=== PATIENT | female | born 1980 | race Caucasian/White ===

== ENCOUNTER 2016-06-09 08:00 | Outpatient (CLI) | payer MEDICAID | END 2016-06-09 08:01 | disposition home or self-care (01) | DX: I49.8 Other specified cardiac arrhythmias (principal); F32.9 Major depressive disorder, single episode, unspecified; F17.200 Nicotine dependence, unspecified, uncomplicated; R07.9 Chest pain, unspecified; R00.2 Palpitations; R06.09 Other forms of dyspnea ==

== ENCOUNTER 2017-08-30 08:00 | Outpatient (CLI) | payer MEDICAID ==
[2017-08-30 13:23] LABS: CHOL/HDL RATIO 4.4 (<4.4); CHOLESTEROL 200 mg/dL; HDL CHOLESTEROL 45 mg/dL; LDL CHOLESTEROL,CALCULATED 125 mg/dL; LDL/HDL RATIO 2.8 (<4.4); VLDL CHOLESTEROL 30 mg/dL
[2017-08-30 13:29] LABS: HB2 TOTAL 16.1 g/dL; HEMOGLOBIN A1C 0.48 g/dL; HEMOGLOBIN A1C % 4.9 % (4.6-6.2)
== END 2017-08-30 08:01 | disposition home or self-care (01) ==
LOC: LAB.N 08:00
PROVIDERS: ATTEND Registered Nurse
DX: F33.9 Major depressive disorder, recurrent, unspecified (principal)
CPT/HCPCS: 36415; 80061; 83036; 83721

== ENCOUNTER 2018-01-31 12:00 | Outpatient (CLI) | payer MEDICAID ==
--- NOTE | 2018-01-31 17:00 | XRAY Report ---
Reason: HIP PAIN,LEFT,CHRONIC Procedure Date: 01/31/2018 Accession Number: [id number] / [id number] Procedure: XR - Hip w/Pelvis 2-3V LT CPT Code: FULL RESULT: EXAM: LEFT HIP AND PELVIS RADIOGRAPHY EXAM DATE: 01/31/2018 12:28 PM. HISTORY: HIP PAIN,LEFT,CHRONIC. COMPARISONS: None available. TECHNIQUE: 1 view of the pelvis and 1 view of the hip. FINDINGS: No acute fracture or dislocation. No significant degenerative changes. Femoral head contours are smooth. No abnormal femoral head sclerosis. Soft tissues are unremarkable. IMPRESSION: Normal pelvis and hip radiography. [facility]
== END 2018-01-31 12:01 | disposition home or self-care (01) ==
LOC: DI 12:00
PROVIDERS: ATTEND Physician Assistant Medical
DX: M25.552 Pain in left hip (principal)

== ENCOUNTER 2018-09-16 08:00 | Outpatient (CLI) | payer MEDICAID ==
[2018-09-16 22:54] LABS: CANDIDA GROUP DNA NEGATIVE (NEGATIVE); CANDIDA KRUSEI DNA NEGATIVE (NEGATIVE); TRICHOMONAS VAGINALIS DNA NEGATIVE (NEGATIVE)
== END 2018-09-16 23:59 | disposition home or self-care (01) ==
LOC: LAB.R 08:00
PROVIDERS: ATTEND Nurse Practitioner Obstetrics & Gynecology
DX: N76.0 Acute vaginitis (principal)
CPT/HCPCS: 87661; 87801

== ENCOUNTER 2018-12-10 15:42 | Outpatient (CLI) | payer MEDICAID | END 2018-12-10 15:43 | disposition EMS.NT | LOC: EMS 15:42 | PROVIDERS: ATTEND Surgery | DX: S29.9XXA Unspecified injury of thorax, initial encounter (principal); V53.5XXA Driver of pick-up truck or van injured in collision with car, pick-up truck or van in traffic accident, initial encounter; Y92.413 State road as the place of occurrence of the external cause ==

== ENCOUNTER 2018-12-13 16:12 | Emergency (ER) | payer OTHER, MEDICAID ==
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
--- NOTE | 2018-12-13 18:27 | XRAY Report ---
Reason: r knee pain s/p fall 4 weeks ago Procedure Date: 12/13/2018 Accession Number: [id number] / [id number] Procedure: XR - Knee 4 View RT CPT Code: FULL RESULT: EXAM: RIGHT KNEE RADIOGRAPHY EXAM DATE: 12/13/2018 05:03 PM. CLINICAL HISTORY: Right knee pain after fall 4 weeks ago. COMPARISON: None. TECHNIQUE: 4 views. FINDINGS: Bones: No acute fracture. No suspicious osseous lesion. Joints: No significant joint space narrowing. No dislocation. Other: None. IMPRESSION: No acute osseous abnormality. [facility]
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
[2018-12-13] MEDS ORDERED: MELOXICAM 7.5 MG TABLET PO STA (18:51)
[2018-12-13 19:06] VITALS: BP 119/76
== END 2018-12-13 19:07 | disposition home or self-care (01) ==
LOC: ED 16:12
DX: J90 Pleural effusion, not elsewhere classified (principal); S90.02XA Contusion of left ankle, initial encounter; S20.219A Contusion of unspecified front wall of thorax, initial encounter; S83.91XA Sprain of unspecified site of right knee, initial encounter; V43.52XA Car driver injured in collision with other type car in traffic accident, initial encounter; Y92.410 Unspecified street and highway as the place of occurrence of the external cause; W19.XXXA Unspecified fall, initial encounter; Y93.59 Activity, other involving other sports and athletics played individually
CPT/HCPCS: 71046; 73564; 73610; 99284; A9270

== ENCOUNTER 2019-05-10 08:00 | Outpatient (CLI) | payer MEDICAID ==
[2019-05-10 12:00] LABS: MUDS CUTOFF CONCENTRATIONS CUTOFF CONC BELOW:
[2019-05-10 18:52] LABS: BASOPHILS # (AUTO) 0.1 10^3/uL (0.0-0.1); BASOPHILS % (AUTO) 0.9 %; EOSINOPHILS # (AUTO) 0.3 10^3/uL (0.0-0.7); EOSINOPHILS % (AUTO) 2.4 %; HGB - HEMOGLOBIN 13.5 g/dL (12.0-16.0); LYMPHOCYTES # (AUTO) 3.8 10^3/uL (1.5-3.5); LYMPHOCYTES % (AUTO) 35.7 %; MEAN CORPUSCULAR HEMOGLOBIN 27.7 pg (27.0-31.0); MEAN CORPUSCULAR HGB CONC 32.9 g/dL (32.0-36.0); MEAN CORPUSCULAR VOLUME 84.2 fL (81.0-99.0); MEAN PLATELET VOLUME 9.6 fL (7.9-10.8); MONOCYTES # (AUTO) 0.6 10^3/uL (0.0-1.0); MONOCYTES % (AUTO) 5.8 %; NEUTROPHILS # (AUTO) 5.8 10^3/uL (1.5-6.6); NEUTROPHILS % (AUTO) 54.8 %; PLT - PLATELET COUNT 440 10^3/uL (130-450); RED BLOOD COUNT 4.87 10^6/uL (4.20-5.40); RED CELL DISTRIBUTION WIDTH 15.4 % (12.0-15.0); WHITE BLOOD COUNT 10.7 x10^3/uL (4.8-10.8)
[2019-05-10 19:08] LABS: HCG UR QUAL NEGATIVE
[2019-05-10 19:14] LABS: AMPHETAMINE SCREEN,URINE NEGATIVE (NEGATIVE); BENZODIAZEPINES SCREEN, URINE NEGATIVE (NEGATIVE); COCAINE SCREEN URINE NEGATIVE (NEGATIVE); METHADONE SCREEN, URINE NEGATIVE (NEGATIVE); METHAMPHETAMINES SCREEN, URINE NEGATIVE (NEGATIVE); OPIATE SCREEN, URINE NEGATIVE (NEGATIVE); OXYCODONE SCREEN, URINE NEGATIVE (NEGATIVE); PROPOXYPHENE SCREEN, URINE NEGATIVE (NEGATIVE); TRICYCLIC ANTIDEPRESSANT,URINE NEGATIVE (NEGATIVE)
[2019-05-10 19:20] LABS: ALBUMIN 3.9 g/dL (3.2-5.5); ALBUMIN/GLOBULIN RATIO 1.3 (1.0-2.2); BILIRUBIN,TOTAL 0.4 mg/dL (0.2-1.0); CALCIUM 8.8 mg/dL (8.5-10.3); CREATININE 0.6 mg/dL (0.4-1.0)
== END 2019-05-10 23:59 | disposition home or self-care (01) ==
LOC: LAB.N 08:00
PROVIDERS: ATTEND Nurse Practitioner Psychiatric/Mental Health
DX: Z13.30 Encounter for screening examination for mental health and behavioral disorders, unspecified (principal)
CPT/HCPCS: 36415; 80053; 80306; 81025; 82306; 84443; 85025

== ENCOUNTER 2019-06-19 14:13 | Emergency (ER) | payer MEDICAID ==
[2019-06-19 14:56] LABS: BASOPHILS # (AUTO) 0.2 10^3/uL (0.0-0.1); BASOPHILS % (AUTO) 1.1 %; EOSINOPHILS # (AUTO) 0.4 10^3/uL (0.0-0.7); EOSINOPHILS % (AUTO) 2.6 %; LYMPHOCYTES # (AUTO) 5.7 10^3/uL (1.5-3.5); LYMPHOCYTES % (AUTO) 38.7 %; MEAN CORPUSCULAR HEMOGLOBIN 28.5 pg (27.0-31.0); MEAN CORPUSCULAR HGB CONC 33.5 g/dL (32.0-36.0); MEAN PLATELET VOLUME 9.2 fL (7.9-10.8); MONOCYTES # (AUTO) 0.9 10^3/uL (0.0-1.0); NEUTROPHILS # (AUTO) 7.6 10^3/uL (1.5-6.6); PLT - PLATELET COUNT 399 10^3/uL (130-450); RED BLOOD COUNT 4.92 10^6/uL (4.20-5.40); RED CELL DISTRIBUTION WIDTH 14.8 % (12.0-15.0); WHITE BLOOD COUNT 14.9 x10^3/uL (4.8-10.8)
[2019-06-19 14:58] LABS: ALBUMIN 4.2 g/dL (3.2-5.5); ALBUMIN/GLOBULIN RATIO 1.4 (1.0-2.2); BILIRUBIN,TOTAL 0.4 mg/dL (0.2-1.0); CALCIUM 9.3 mg/dL (8.5-10.3); CREATININE 0.6 mg/dL (0.4-1.0); TOTAL PROTEIN 7.2 g/dL (6.7-8.2)
--- NOTE | 2019-06-19 15:03 | XRAY Report ---
Reason: chest pain Procedure Date: 06/19/2019 Accession Number: [id number] / [id number] Procedure: XR - Chest 2 View X-Ray CPT Code: 24133 Final Report FULL RESULT: EXAM: CHEST RADIOGRAPHY 2 VIEWS EXAM DATE: 06/19/2019. CLINICAL HISTORY: Chest pain. COMPARISON: PA and lateral chest on 12/13/2018. TECHNIQUE: PA and lateral views. FINDINGS: Lungs/Pleura: Normal vasculature. 3 mm calcific density of the right lower chest, probably a calcified granuloma, is unchanged. No acute pulmonary abnormality. No pleural fluid or pneumothorax, small right pleural effusion resolved since the prior examination. Mediastinum: Normal cardiac and mediastinal contours. Bones: Dextroconvex midthoracic scoliosis, 57 degrees and levoconvex thoracolumbar scoliosis, 51 degrees, are unchanged. Old fracture of the right lateral ninth rib. IMPRESSION: No acute abnormality. [facility]
--- NOTE | 2019-06-19 15:25 | ED Physician Documentation ---
PD HPI CHEST PAIN - Stated complaint Stated Complaint: CHEST TIGHTNESS - Chief complaint Chief Complaint: Cardiac - History obtained from History obtained from: Patient - History of Present Illness Timing - onset: How many weeks ago (3) Timing - onset during: Rest Timing - duration: Minutes Timing - details: Abrupt onset, Now resolved, Waxing and waning Quality: Tightness, Sharp Location: Left chest Radiation: Back Improved by: Rest Worsened by: Movement, Position Associated symptoms: No: Shortness of air, Diaphoresis, Nausea, Vomiting, Feeling faint / dizzy, General Weakness, Palpitations, Cough Similar symptoms before: Has not had sx before Recently seen: Not recently seen - Additional information Additional information: Previously well 39-year-old female with a history of scoliosis that has developed a pain in her left chest which is cramping type in nature and tightness. She has these in episodes and it does seem to be related to positioning of her body. She has these more often if she is standing and she is having these more often if she is at work for a long time. She has been laying on the gurney here in the emergency department in a semi-adkins's position without symptoms now. She is struck by this because she is been having symptoms all day today. She now realizes she can get into a position where she is comfortable. Review of Systems Constitutional: denies: Fever Eyes: denies: Decreased vision Ears: denies: Ear pain Nose: denies: Rhinorrhea / runny nose, Congestion Throat: denies: Sore throat Cardiac: reports: Chest pain / pressure. denies: Palpitations, Pedal edema, Calf pain Respiratory: denies: Dyspnea, Cough GI: denies: Nausea, Vomiting : denies: Dysuria PD PAST MEDICAL HISTORY - Past Medical History Past Medical History: Yes Cardiovascular: Murmur Respiratory: None Neuro: None Endocrine/Autoimmune: None GI: None : None HEENT: None Psych: Depression, Anxiety Musculoskeletal: None Derm: None - Past Surgical History Past Surgical History: No - Present Medications Home Medications: Ambulatory Orders Medication Instructions Recorded Confirmed Meloxicam [Mobic] 15 mg PO DAILY PRN #20 tablet 12/13/18 - Allergies Allergies/Adverse Reactions: Allergies Allergy/AdvReac Type Severity Reaction Status Date / Time No Known Drug Allergies Allergy Verified 06/19/19 14:22 - Social History Does the pt smoke?: Yes Smoking Status: Current every day smoker Does the pt drink ETOH?: Yes Does the pt have substance abuse?: No - Immunizations Immunizations are current?: Yes PD ED PE NORMAL - Vitals Vital signs reviewed: Yes (Normal) - General General: Alert and oriented X 3, No acute distress, Well developed/nourished - HEENT HEENT: Atraumatic, PERRL, EOMI - Neck Neck: Supple, no meningeal sign, No bony TTP - Cardiac Cardiac: RRR, Other (2/6 holosystolic murmer at LSB) - Respiratory Respiratory: No respiratory distress, Clear bilaterally, Other (No chest wall tenderness) - Abdomen Abdomen: Soft, Non tender, Non distended, No organomegaly - Back Back: No CVA TTP, No spinal TTP - Derm Derm: Normal color, Warm and dry, No rash - Extremities Extremities: No deformity, No edema - Neuro Neuro: Alert and oriented X 3, fireperson 2-12 intact, No motor deficit, No sensory deficit, Normal speech Eye Opening: Spontaneous Motor: Obeys Commands Verbal: Oriented GCS Score: 15 - Psych Psych: Normal mood, Normal affect Results - Vitals Vitals: Vital Signs - 24 hr 06/19/19 06/19/19 06/19/19 14:15 14:35 15:10 Temperature 36.7 C Heart Rate 66 64 75 Respiratory 16 16 13 Rate Blood Pressure 121/72 129/80 107/69 O2 Saturation 97 99 99 06/19/19 16:15 Temperature Heart Rate 64 Respiratory 16 Rate Blood Pressure 115/69 O2 Saturation 100 Oxygen O2 Source Room air - EKG (time done) 1420 Rate: Rate (enter#) (65) Rhythm: NSR [place]: RAD Compare to prior EKG: Unchanged from prior EKG (SPT 04-17-2016) Computer interpretation: Agree with computer - Labs Labs: Laboratory Tests 06/19/19 06/19/19 06/19/19 14:35 14:35 14:35 WBC 14.9 H RBC 4.92 Hgb 14.0 Hct 41.8 MCV 85.0 MCH 28.5 MCHC 33.5 RDW 14.8 Plt Count 399 MPV 9.2 Neut # (Auto) 7.6 H Lymph # (Auto) 5.7 H [place] # (Auto) 0.9 Eos # (Auto) 0.4 Baso # (Auto) 0.2 H Absolute Nucleated RBC 0.00 Nucleated RBC % 0.0 Sodium 138 Potassium 3.5 Chloride 101 Carbon Dioxide 27 Anion Gap 10.0 BUN 11 Creatinine 0.6 Estimated GFR (MDRD) 112 Glucose 81 Calcium 9.3 Total Bilirubin 0.4 AST 21 ALT 18 Alkaline Phosphatase 120 Troponin I High Sens < 2.3 L Total Protein 7.2 Albumin 4.2 Globulin 3.0 Albumin/Globulin Ratio 1.4 Lipase 34 - Rads (name of study) chest Radiology: Prelim report reviewed (Impression: No acute abnormality.), EMP read indepedently (and a lot of scoliosis), See rad report PD MEDICAL DECISION MAKING - ED course Complexity details: reviewed old records, reviewed results, re-evaluated patient, considered differential, d/w patient ED course: 39-year-old female with intermittent spasmodic pains in her left chest has significant and impressive scoliosis on her chest x-ray. When I am discussing this with the patient and discussing the possibility of referred pain she realizes that her symptoms are more prevalent when she is standing or makes a twist or movement and she has noticed that when she stands up here at the side of the bed tilts her head a certain way she will get her symptoms to come on. I suspect she has referred pain. She is given a dose of dexamethasone and she will follow-up with her primary about potential further treatment. She was concerned about her heart as a cause for these pains and our work-up is reassuring. Departure - Departure Disposition: 01 Home, Self Care Clinical Impression: Radiculopathy, thoracic region Condition: Stable Instructions: ED Cervical Radiculopathy Follow-Up: Jef Bower PA-C [Primary Care Provider] - Discharge Date/Time: 06/19/19 16:05
[2019-06-19] MEDS ORDERED: DEXAMETHASONE 10 MG/ML VIAL PO STA (15:37)
[2019-06-19] MEDS ORDERED: CHERRY SYRUP 10 ML UDC PO ONE (15:37)
[2019-06-19 16:16] VITALS: BP 115/69
== END 2019-06-19 16:05 | disposition home or self-care (01) ==
LOC: ED 14:13
DX: M54.14 Radiculopathy, thoracic region (principal); M41.85 Other forms of scoliosis, thoracolumbar region; R01.1 Cardiac murmur, unspecified; F17.200 Nicotine dependence, unspecified, uncomplicated
CPT/HCPCS: 36415; 71046; 80053; 83690; 84484; 85025; 93005; 99284; A9270

== ENCOUNTER 2020-02-27 10:33 | Outpatient (CLI) | payer MEDICAID ==
--- NOTE | 2020-02-27 12:52 | XRAY Report ---
PROCEDURE: Knee 4 View LT INDICATIONS: KNEE PAIN,LEFT TECHNIQUE: 4 views of the left knee(s) were acquired. COMPARISON: None. FINDINGS: Bones: No fractures or dislocations. No suspicious bony lesions. Mild medial and patellofemoral co mpartment narrowing. No erosions or periarticular osteophytes. Soft tissues: Mild to moderate joint effusion. No suspicious soft tissue calcifications. IMPRESSION: Mild medial and patellofemoral compartment narrowing suggestive early osteoarthritis. Reviewed by: Cesia Sumner MD on 02/27/2020 12:51 PM PST Approved by: Cesia Sumner MD on 02/27/2020 12:51 PM PST Station ID: [id number]
== END 2020-02-27 10:34 | disposition home or self-care (01) ==
LOC: DI 10:33
PROVIDERS: ATTEND Nurse Practitioner Family
DX: M25.562 Pain in left knee (principal)

== ENCOUNTER 2020-05-08 08:00 | Outpatient (CLI) | payer MEDICAID ==
[2020-05-08 18:44] LABS: BASOPHILS # (AUTO) 0.1 10^3/uL (0.0-0.1); BASOPHILS % (AUTO) 0.9 %; EOSINOPHILS # (AUTO) 0.2 10^3/uL (0.0-0.7); HGB - HEMOGLOBIN 13.9 g/dL (12.0-16.0); LYMPHOCYTES # (AUTO) 4.6 10^3/uL (1.5-3.5); LYMPHOCYTES % (AUTO) 40.5 %; MEAN CORPUSCULAR HEMOGLOBIN 27.7 pg (27.0-31.0); MEAN CORPUSCULAR VOLUME 86.8 fL (81.0-99.0); MEAN PLATELET VOLUME 9.6 fL (7.9-10.8); MONOCYTES # (AUTO) 0.7 10^3/uL (0.0-1.0); MONOCYTES % (AUTO) 5.8 %; NEUTROPHILS # (AUTO) 5.7 10^3/uL (1.5-6.6); NEUTROPHILS % (AUTO) 50.4 %; PLT - PLATELET COUNT 424 10^3/uL (130-450); RED BLOOD COUNT 5.01 10^6/uL (4.20-5.40); RED CELL DISTRIBUTION WIDTH 14.6 % (12.0-15.0); WHITE BLOOD COUNT 11.3 x10^3/uL (4.8-10.8)
[2020-05-08 19:34] LABS: HEMOGLOBIN A1c% 5.5 % (4.27-6.07)
[2020-05-08 19:38] LABS: ALBUMIN 4.2 g/dL (3.2-5.5); ALBUMIN/GLOBULIN RATIO 1.4 (1.0-2.2); BILIRUBIN,TOTAL 0.5 mg/dL (0.2-1.0); CALCIUM 9.4 mg/dL (8.5-10.3); CREATININE 0.5 mg/dL (0.4-1.0); TOTAL PROTEIN 7.3 g/dL (6.7-8.2)
== END 2020-05-08 23:59 | disposition home or self-care (01) ==
LOC: LAB.WCP 08:00
PROVIDERS: ATTEND Physician Assistant
DX: E55.9 Vitamin D deficiency, unspecified (principal); F32.9 Major depressive disorder, single episode, unspecified
CPT/HCPCS: 36415; 80053; 83036; 84443; 85025

== ENCOUNTER 2021-08-06 08:33 | Outpatient (CLI) | payer MEDICAID ==
[2021-08-06 12:18] LABS: BASOPHILS # (AUTO) 0.1 10^3/uL (0.0-0.1); EOSINOPHILS # (AUTO) 0.2 10^3/uL (0.0-0.7); EOSINOPHILS % (AUTO) 2.1 %; HCT - HEMATOCRIT 44.7 % (37.0-47.0); LYMPHOCYTES # (AUTO) 3.1 10^3/uL (1.5-3.5); LYMPHOCYTES % (AUTO) 28.7 %; MEAN CORPUSCULAR HEMOGLOBIN 29.6 pg (27.0-31.0); MEAN CORPUSCULAR HGB CONC 33.6 g/dL (32.0-36.0); MEAN CORPUSCULAR VOLUME 88.2 fL (81.0-99.0); MONOCYTES # (AUTO) 0.8 10^3/uL (0.0-1.0); NEUTROPHILS # (AUTO) 6.6 10^3/uL (1.5-6.6); NEUTROPHILS % (AUTO) 60.9 %; PLT - PLATELET COUNT 411 10^3/uL (130-450); RED BLOOD COUNT 5.07 10^6/uL (4.20-5.40); RED CELL DISTRIBUTION WIDTH 15.4 % (12.0-15.0); WHITE BLOOD COUNT 10.9 x10^3/uL (4.8-10.8)
[2021-08-06 12:30] LABS: THYROID STIMULATING HORMONE 1.28 uIU/mL (0.34-5.60)
[2021-08-06 12:42] LABS: ALBUMIN 4.1 g/dL (3.2-5.5); ALBUMIN/GLOBULIN RATIO 1.4 (1.0-2.2); ALKALINE PHOSPHATASE 90 IU/L (42-121); ALT ALANINE AMINOTRANSFERASE 22 IU/L (10-60); AST ASPARTATE AMINOTRANSFERASE 23 IU/L (10-42); BILIRUBIN,TOTAL 0.7 mg/dL (0.2-1.0); BUN - BLOOD UREA NITROGEN 9 mg/dL (6-20); CALCIUM 9.2 mg/dL (8.5-10.3); CARBON DIOXIDE - CO2 26 mmol/L (21-32); CHLORIDE 103 mmol/L (101-111); CHOL/HDL RATIO 2.9 (<4.4); CHOLESTEROL 174 mg/dL; CREATININE 0.7 mg/dL (0.4-1.0); GFR - MDRD 93 (>89); GLUCOSE 94 mg/dL (70-100); HDL CHOLESTEROL 60 mg/dL; LDL CHOLESTEROL,CALCULATED 102 mg/dL; LDL/HDL RATIO 1.7 (<4.4); POTASSIUM 3.5 mmol/L (3.5-5.0); SODIUM 138 mmol/L (135-145); TRIGLYCERIDES 59 mg/dL; VLDL CHOLESTEROL 12 mg/dL
== END 2021-08-06 08:34 | disposition home or self-care (01) ==
LOC: LAB.N 08:33
PROVIDERS: ATTEND Physician Assistant
DX: R53.83 Other fatigue (principal); Z79.899 Other long term (current) drug therapy; Z13.220 Encounter for screening for lipoid disorders
CPT/HCPCS: 36415; 80053; 80061; 83721; 84443; 85025

== ENCOUNTER 2021-09-30 08:44 | Outpatient (CLI) | payer MEDICAID ==
[2021-09-30 23:55] LABS: CHLAMYDIA TRACHOMATIS DNA NEGATIVE (NEGATIVE); NEISSERIA GONORRHOEAE DNA NEGATIVE (NEGATIVE); TRICHOMONAS VAGINALIS DNA NEGATIVE (NEGATIVE)
== END 2021-09-30 08:45 | disposition home or self-care (01) ==
LOC: LAB 08:44
PROVIDERS: ATTEND Obstetrics & Gynecology
DX: Z11.3 Encounter for screening for infections with a predominantly sexual mode of transmission (principal)
CPT/HCPCS: 87491; 87591; 87661

== ENCOUNTER 2021-10-17 20:34 | Outpatient (CLI) | payer MEDICAID | END 2021-10-17 20:35 | disposition critical access hospital (66) | LOC: EMS 20:34 | DX: R46.89 Other symptoms and signs involving appearance and behavior (principal); Z78.1 Physical restraint status | CPT/HCPCS: A0425; A0429; A0999 ==

== ENCOUNTER 2021-10-17 20:53 | Emergency (ER) | payer MEDICAID ==
[2021-10-17 23:40] LABS: BASOPHILS # (AUTO) 0.1 10^3/uL (0.0-0.1); BASOPHILS % (AUTO) 0.4 %; EOSINOPHILS # (AUTO) 0.3 10^3/uL (0.0-0.7); HCT - HEMATOCRIT 46.3 % (37.0-47.0); HGB - HEMOGLOBIN 16.2 g/dL (12.0-16.0); LYMPHOCYTES # (AUTO) 4.2 10^3/uL (1.5-3.5); LYMPHOCYTES % (AUTO) 30.7 %; MEAN CORPUSCULAR VOLUME 88.7 fL (81.0-99.0); MEAN PLATELET VOLUME 9.4 fL (7.9-10.8); MONOCYTES # (AUTO) 0.7 10^3/uL (0.0-1.0); MONOCYTES % (AUTO) 5.3 %; NEUTROPHILS # (AUTO) 8.4 10^3/uL (1.5-6.6); NEUTROPHILS % (AUTO) 61.2 %; PLT - PLATELET COUNT 353 10^3/uL (130-450); RED BLOOD COUNT 5.22 10^6/uL (4.20-5.40); WHITE BLOOD COUNT 13.7 x10^3/uL (4.8-10.8)
[2021-10-18 00:04] LABS: ACETAMINOPHEN < 10 ug/mL (10-30); ALBUMIN 4.1 g/dL (3.2-5.5); ALBUMIN/GLOBULIN RATIO 1.3 (1.0-2.2); ALKALINE PHOSPHATASE 82 IU/L (42-121); ALT ALANINE AMINOTRANSFERASE 35 IU/L (10-60); AST ASPARTATE AMINOTRANSFERASE 45 IU/L (10-42); BILIRUBIN,TOTAL 0.5 mg/dL (0.2-1.0); BUN - BLOOD UREA NITROGEN 7 mg/dL (6-20); CALCIUM 8.7 mg/dL (8.5-10.3); CARBON DIOXIDE - CO2 25 mmol/L (21-32); CHLORIDE 104 mmol/L (101-111); CREATININE 0.5 mg/dL (0.4-1.0); ETOH - ETHANOL 208.7 mg/dL; GFR - MDRD 137 (>89); GLUCOSE 92 mg/dL (70-100); LIPASE 94 U/L (22-51); POTASSIUM 3.1 mmol/L (3.5-5.0); SALICYLATE < 6.0 mg/dL; SODIUM 142 mmol/L (135-145); TOTAL PROTEIN 7.2 g/dL (6.7-8.2)
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
[2021-10-18 06:59] LABS: MUDS CUTOFF CONCENTRATIONS CUTOFF CONC BELOW:
[2021-10-18 07:00] LABS: BILIRUBIN,URINE NEGATIVE (NEGATIVE); CLARITY,URINE CLEAR (CLEAR); GLUCOSE, URINE (UA) NEGATIVE (NEGATIVE); KETONES,URINE (UA) TRACE mg/dL (NEGATIVE); LEUKOCYTE ESTERASE, URINE NEGATIVE (NEGATIVE); NITRITE,URINE NEGATIVE (NEGATIVE); OCCULT BLOOD,URINE NEGATIVE (NEGATIVE); PROTEIN,URINE NEGATIVE (NEGATIVE); UROBILINOGEN,URINE 1 (NORMAL) E.U./dL (NORMAL)
[2021-10-18 07:01] LABS: HCG UR QUAL NEGATIVE
[2021-10-18 07:13] LABS: AMPHETAMINE SCREEN,URINE POSITIVE (NEGATIVE); BARBITURATE SCREEN,UR NEGATIVE (NEGATIVE); BENZODIAZEPINES SCREEN, URINE NEGATIVE (NEGATIVE); COCAINE SCREEN URINE NEGATIVE (NEGATIVE); METHADONE SCREEN, URINE NEGATIVE (NEGATIVE); METHAMPHETAMINES SCREEN, URINE NEGATIVE (NEGATIVE); OPIATE SCREEN, URINE NEGATIVE (NEGATIVE); OXYCODONE SCREEN, URINE NEGATIVE (NEGATIVE); PROPOXYPHENE SCREEN, URINE NEGATIVE (NEGATIVE); THC CANNABINOID SCREEN, URINE POSITIVE (NEGATIVE); TRICYCLIC ANTIDEPRESSANT,URINE NEGATIVE (NEGATIVE)
--- NOTE | 2021-10-18 10:41 | ED Physician Documentation ---
ED Addendum - Addendum Addendum: 10/18/21 10:53 Patient was allowed to sober in the emergency department. Social work was consulted. Patient is awake, alert, appropriate. Denies any suicidal or homicidal ideation. Is not gravely disabled. Does not want to go to detox or rehab. Patient would like to go home at this time. Has resources at home for alcohol abuse. Patient counseled regarding signs and symptoms for which I believe and urgent re-evaluation would be necessary. Patient with good understanding of and agreement to plan and is comfortable going home at this time This document was made in part using voice recognition software. While efforts are made to proofread this document, sound alike and grammatical errors may occur. Departure - Departure Disposition: 01 Home, Self Care Clinical Impression: COVID-19 Alcohol intoxication Qualifiers: Complication of substance-induced condition: uncomplicated Qualified Code(s): F10.920 - Alcohol use, unspecified with intoxication, uncomplicated Condition: Good Instructions: ED Alcohol Intoxication Follow-Up: your,doctor in 1 week [Other] Comments: You are brought into the emergency department by law enforcement and EMS due to concerns of alcohol use and your safety. You have been allowed to sleep through the night and metabolize the alcohol. At this time you are not requiring admission to the hospital for medical reasons or to a psychiatric facility. Please limit your alcohol use. But anytime you feel unsafe, have thoughts of hurting yourself or others please return to the emergency department or call 911. During your assessment we obtained a nasal swab for COVID-19 and it is positive. Please follow quarantine guidelines per CDC recommendations. Contact: [address] [address] Fax: Isolation precautions for COVID Day 0 is your first day of symptoms or a positive viral test. Day 1 is the first full day after your symptoms developed or your test specimen was collected. If you have COVID-19 or have symptoms, isolate for at least 5 days. IF YOU: Tested positive for COVID-19 or have symptoms, regardless of vaccination status Stay home for at least 5 days Stay home for 5 days and isolate from others in your home. Wear a well-fitting mask if you must be around others in your home. Do not travel. Ending isolation if you had symptoms End isolation after 5 full days if you are fever-free for 24 hours (without the use of fever-reducing medication) and your symptoms are improving. Ending isolation if you did NOT have symptoms End isolation after at least 5 full days after your positive test. If you got very sick from COVID-19 or have a weakened immune system You should isolate for at least 10 days. Consult your doctor before ending isolation. Take precautions until day 10 Wear a well-fitting mask Wear a well-fitting mask for 10 full days any time you are around others inside your home or in public. Do not go to places where you are unable to wear a mask. Do not travel Do not travel until a full 10 days after your symptoms started or the date your positive test was taken if you had no symptoms. Avoid being around people who are more likely to get very sick from COVID-19.
[2021-10-18 11:03] VITALS: BP 116/79
== END 2021-10-18 11:07 | disposition home or self-care (01) ==
LOC: ED 20:53
DX: U07.1 COVID-19 (principal); F10.920 Alcohol use, unspecified with intoxication, uncomplicated; F17.200 Nicotine dependence, unspecified, uncomplicated
CPT/HCPCS: 36415; 80053; 80306; 80307; 80320; 80329; 81001; 81003; 81025; 83690; 84443; 85025; 87086; 99281; 99283

== ENCOUNTER 2022-03-25 15:15 | Outpatient (CLI) | payer MEDICAID ==
[2022-03-26 23:13] LABS: CHLAMYDIA TRACHOMATIS DNA NEGATIVE (NEGATIVE); NEISSERIA GONORRHOEAE DNA NEGATIVE (NEGATIVE); TRICHOMONAS VAGINALIS DNA NEGATIVE (NEGATIVE)
== END 2022-03-25 23:59 | disposition home or self-care (01) ==
LOC: LAB.WC 15:15
PROVIDERS: ATTEND Nurse Practitioner
DX: Z11.3 Encounter for screening for infections with a predominantly sexual mode of transmission (principal)
CPT/HCPCS: 87491; 87591; 87661

== ENCOUNTER 2022-05-04 15:48 | Outpatient (CLI) | payer MEDICAID ==
--- NOTE | 2022-05-04 17:18 | XRAY Report ---
PROCEDURE: Chest 2 View X-Ray INDICATIONS: SHORTNESS OF BREATH, XR OF TOBACCO USE TECHNIQUE: 2 views of the chest were acquired. COMPARISON: 06/19/2019 FINDINGS: Surgical changes and devices: None. Lungs and pleura: No pleural effusions or pneumothorax. Lungs are clear. Mediastinum: Mildly tortuous thoracic aorta is again seen unchanged from prior study. Heart size is n ormal. Bones and chest wall: Moderate S-shaped scoliosis of thoracolumbar spine is unchanged. No suspicious bony abnormalities. Soft tissues appear unremarkable. IMPRESSION: No acute cardiopulmonary pathology. No significant changes from previous study. Reviewed by: Shankar Nichole MD on 05/04/2022 5:16 PM PST Approved by: Shankar Nichole MD on 05/04/2022 5:16 PM PST Station ID: [id number]
== END 2022-05-04 15:49 | disposition home or self-care (01) ==
LOC: DI 15:48
PROVIDERS: ATTEND Physician Assistant
DX: R06.02 Shortness of breath (principal); Z87.891 Personal history of nicotine dependence

== ENCOUNTER 2022-06-09 08:13 | Outpatient (CLI) | payer MEDICAID ==
[2022-06-09 11:57] LABS: BASOPHILS # (AUTO) 0.1 10^3/uL (0.0-0.1); BASOPHILS % (AUTO) 1.2 %; EOSINOPHILS # (AUTO) 1.1 10^3/uL (0.0-0.7); EOSINOPHILS % (AUTO) 10.3 %; HGB - HEMOGLOBIN 14.9 g/dL (12.0-16.0); LYMPHOCYTES # (AUTO) 3.4 10^3/uL (1.5-3.5); MEAN CORPUSCULAR HEMOGLOBIN 29.2 pg (27.0-31.0); MEAN CORPUSCULAR HGB CONC 32.4 g/dL (32.0-36.0); MEAN CORPUSCULAR VOLUME 90.2 fL (81.0-99.0); MEAN PLATELET VOLUME 9.8 fL (7.9-10.8); MONOCYTES # (AUTO) 0.7 10^3/uL (0.0-1.0); NEUTROPHILS % (AUTO) 48.3 %; PLT - PLATELET COUNT 391 10^3/uL (130-450); RED CELL DISTRIBUTION WIDTH 13.2 % (12.0-15.0); WHITE BLOOD COUNT 10.3 x10^3/uL (4.8-10.8)
[2022-06-09 11:59] LABS: SLIDE REVIEW? Indicated
[2022-06-09 12:29] LABS: PLATELET ESTIMATE, MANUAL NORMAL (130-450,000) (NORMAL); PLATELET MORPHOLOGY NORMAL APPEARANCE (NORMAL); RBC MORPHOLOGY (MULTIPLE) NORMAL APPEARANCE (NORMAL)
== END 2022-06-09 08:14 | disposition home or self-care (01) ==
LOC: LAB.N 08:13
PROVIDERS: ATTEND Physician Assistant
DX: R53.83 Other fatigue (principal); G89.29 Other chronic pain
CPT/HCPCS: 36415; 85025; 85651

== ENCOUNTER 2022-07-23 17:00 | Outpatient (CLI) | payer MEDICAID ==
[2022-07-23 22:43] LABS: BACTERIAL VAGINOSIS DNA NEGATIVE (NEGATIVE); CANDIDA GLABRATA DNA NEGATIVE (NEGATIVE); CANDIDA GROUP DNA NEGATIVE (NEGATIVE); CANDIDA KRUSEI DNA NEGATIVE (NEGATIVE); TRICHOMONAS VAGINALIS DNA NEGATIVE (NEGATIVE)
[2022-07-24 02:11] LABS: CHLAMYDIA TRACHOMATIS DNA NEGATIVE (NEGATIVE); NEISSERIA GONORRHOEAE DNA NEGATIVE (NEGATIVE)
== END 2022-07-23 17:15 | disposition home or self-care (01) ==
LOC: LAB.N 17:00
PROVIDERS: ATTEND Physician Assistant
DX: N76.0 Acute vaginitis (principal)
CPT/HCPCS: 81514; 87491; 87591; 87661

== ENCOUNTER 2022-09-30 15:30 | Outpatient (CLI) | payer MEDICAID ==
[2022-10-01 19:50] LABS: BACTERIAL VAGINOSIS DNA NEGATIVE (NEGATIVE); CANDIDA GLABRATA DNA NEGATIVE (NEGATIVE); CANDIDA GROUP DNA NEGATIVE (NEGATIVE); CANDIDA KRUSEI DNA NEGATIVE (NEGATIVE); TRICHOMONAS VAGINALIS DNA NEGATIVE (NEGATIVE)
[2022-10-01 20:55] LABS: CHLAMYDIA TRACHOMATIS DNA NEGATIVE (NEGATIVE); NEISSERIA GONORRHOEAE DNA NEGATIVE (NEGATIVE)
[2022-10-02 05:13] LABS: HCV AB Non Reactive (Non Reactive); HIV SCREEN 4TH GENERATION Non Reactive (Non Reactive)
[2022-10-05 08:08] LABS: RPR Non Reactive (Non Reactive)
== END 2022-09-30 15:45 | disposition home or self-care (01) ==
LOC: LAB.N 15:30
PROVIDERS: ATTEND Family Medicine
DX: Z11.3 Encounter for screening for infections with a predominantly sexual mode of transmission (principal)
CPT/HCPCS: 36415; 81514; 86592; 86803; 87389; 87491; 87536; 87591; 87661

== ENCOUNTER 2023-06-11 08:00 | Outpatient (CLI) | payer MEDICAID | END 2023-06-11 23:59 | disposition home or self-care (01) | LOC: LAB.WC 08:00 | PROVIDERS: ATTEND Nurse Practitioner | DX: A60.00 Herpesviral infection of urogenital system, unspecified (principal) | CPT/HCPCS: 87252 ==

== ENCOUNTER 2023-07-15 14:45 | Outpatient (CLI) | payer MEDICAID ==
[2023-07-15] MEDS ORDERED: DIATRIZOATE MEGLU/DIATRIZO SOD 30 ML BOTTLE PO ONE (14:50)
[2023-07-15] MEDS ORDERED: iohexoL-300 100 ML VIAL ONE (14:50)
[2023-07-15] MEDS: iohexoL-300 100 ML VIAL IVP ONE (16:38)
[2023-07-15] MEDS: DIATRIZOATE MEGLU/DIATRIZO SOD 30 ML BOTTLE PO ONE (16:38)
--- NOTE | 2023-07-15 22:57 | CT Report ---
PROCEDURE: Abdomen/Pelvis W INDICATIONS: ABN PAIN CONTRAST: Omni 300 100ml TECHNIQUE: After the administration of intravenous contrast, a CT scan of the abdomen and pelvis was performed. Images were recorded and evaluated at appropriate window settings. Reformats: coronal and sagittal. F or radiation dose reduction, the following was used: automated exposure control, adjustment of mA and /or kV according to patient size. COMPARISON: None. FINDINGS: Image quality: Diagnostic. Lower chest: Unremarkable. Liver: No solid mass. Gallbladder and biliary tree: No radiopaque stones or wall thickening. No biliary dilation. Spleen: No splenomegaly. Pancreas: No pancreatic ductal dilation. Adrenals: No adrenal nodule. Kidneys and ureters: No hydronephrosis. No renal cystic lesion which requires follow up. No solid mas s. Stomach, bowel and peritoneum: No bowel distension. No pathologic free fluid. Lymph nodes: No central or retroperitoneal adenopathy. Vessels: No infrarenal aortic aneurysm. PELVIS Reproductive organs: IUD is in place.. Bladder: No abnormal wall thickening, accounting for underdistention. Pelvic lymph nodes: No pelvic adenopathy by size criteria. Bones: No aggressive osseous abnormality. S-shaped scoliosis. No acute vertebral body compression fra cture. Other: No significant ventral or inguinal hernia. IMPRESSION: No acute abdominopelvic process. Reviewed by: Yanna Granados MD, PhD on 07/15/2023 10:55 PM PDT Approved by: Yanna Granados MD, PhD on 07/15/2023 10:55 PM PDT Station ID: [id number]
== END 2023-07-15 14:46 | disposition home or self-care (01) ==
LOC: DI 14:45
PROVIDERS: ATTEND Nurse Practitioner
DX: R10.9 Unspecified abdominal pain (principal)
CPT/HCPCS: 74177; Q9963; Q9967

== ENCOUNTER 2023-08-21 17:48 | Outpatient (CLI) | payer MEDICAID | END 2023-08-21 23:59 | disposition critical access hospital (66) | LOC: EMS 17:48 | DX: R06.02 Shortness of breath (principal); R06.2 Wheezing | CPT/HCPCS: A0425; A0427; A0999 ==

== ENCOUNTER 2023-08-21 18:09 | Inpatient (IN) | payer MEDICAID ==
--- NOTE | 2023-08-21 18:17 | ED Physician Documentation ---
PD HPI DYSPNEA - Stated complaint Stated Complaint: SOA - History obtained from History obtained from: Patient, EMS - Additional information Additional information: She has a history of COPD and she says she been sick with cold for a few days but earlier today started wheezing and having much more trouble breathing despite using her rescue inhaler at home. She denies fevers. She denies any other health problems. On the way here received 3 DuoNebs and 125 mg of IV Solu-Medrol. PD PAST MEDICAL HISTORY - Past Medical History Cardiovascular: Murmur Respiratory: None, COPD Neuro: None Endocrine/Autoimmune: None GI: None : None HEENT: None Psych: Depression, Anxiety Musculoskeletal: None Derm: None - Past Surgical History Past Surgical History: No - Present Medications Home Medications: Ambulatory Orders Medication Instructions Recorded Confirmed ARIPiprazole [Abilify] 5 mg PO DAILY 08/21/23 08/21/23 Albuterol Sulfate [Proair 90 mcg IH Q4HR PRN 08/21/23 08/21/23 Respiclick] Buprenorphine [Sublocade] 1 ea SUBQ ONCE 08/21/23 08/21/23 Citalopram Hydrobromide 20 mg PO DAILY 08/21/23 08/21/23 [Citalopram HBr] Cyclobenzaprine [Flexeril] 10 mg PO TID PRN 08/21/23 08/21/23 Dextroamphetamine/Amphetamine 25 mg PO DAILY 08/21/23 08/21/23 [Dextroamph-Amphet ER 25 mg Cap] Diclofenac Sodium Dr [Voltaren] 75 mg PO BIDAC PRN 08/21/23 08/21/23 Tiotropium [place] [Spiriva] 1 puffs INH DAILY 08/21/23 08/21/23 - Allergies Allergies/Adverse Reactions: Allergies Allergy/AdvReac Type Severity Reaction Status Date / Time No Known Drug Allergies Allergy Verified 08/21/23 19:24 - Social History Does the pt smoke?: Yes Smoking Status: Current every day smoker Does the pt drink ETOH?: Yes Does the pt have substance abuse?: No - Immunizations Immunizations are current?: Yes PD ED PE NORMAL - Vitals Vital signs reviewed: Yes - General General: Other (She has significantly labored breathing but is speaking in full sentences. She is hypoxemic and diaphoretic.) - Cardiac Cardiac: RRR, No murmur - Respiratory Respiratory: Other (Tachypneic and labored breathing with inspiratory and expiratory wheezes throughout and mildly diminished.) - Abdomen Abdomen: Non tender - Extremities Extremities: No edema, No calf tenderness / cord - Neuro Neuro: Alert and oriented X 3 Results - Vitals Vitals: Vital Signs - 24 hr 08/21/23 08/21/23 08/21/23 18:09 18:21 18:40 Temperature 36.8 C Heart Rate 110 H 107 H 100 Respiratory 24 20 20 Rate Blood Pressure 129/92 H 105/81 H O2 Saturation 89 L 92 If not protocol 5 4.5 : Oxygen Flow, liters/minute 08/21/23 08/21/23 08/21/23 18:51 19:00 19:24 Temperature Heart Rate 111 H 114 H 114 H Respiratory 18 20 15 Rate Blood Pressure 126/82 H 116/84 H O2 Saturation 93 93 94 If not protocol 5 6 : Oxygen Flow, liters/minute 08/21/23 19:30 Temperature Heart Rate 107 H Respiratory 15 Rate Blood Pressure 134/79 H O2 Saturation 96 If not protocol 6 : Oxygen Flow, liters/minute Oxygen O2 Source Oxymizer Oxygen Flow Rate 5 - EKG (time done) 1835 EKG releavant findings:: EKG personally interpreted by author of this note. Relevant findings are: Rate: Rate (enter#) (105) Rhythm: Sinus tachycardia, KELBY [place]: Normal Intervals: Normal [place] QRS: Normal Ischemia: Normal ST segments - Labs Labs: Laboratory Tests 08/21/23 08/21/23 08/21/23 18:20 18:20 18:20 WBC 20.8 H RBC 5.59 H Hgb 16.2 H Hct 50.0 H MCV 89.4 MCH 29.0 MCHC 32.4 RDW 13.4 Plt Count 358 MPV 9.0 Neut # (Auto) Not Reportable Lymph # (Auto) Not Reportable [place] # (Auto) Not Reportable Eos # (Auto) Not Reportable Baso # (Auto) Not Reportable Absolute Nucleated RBC Not Reportable Total Counted 100 Band Neuts % (Manual) 0 Reactive Lymphs % (Man) 10 Abnorm Lymph % (Manual) 0 Nucleated RBC % Not Reportable Neutrophils # (Manual) 15.8 H Lymphocytes # (Manual) 3.3 Monocytes # (Manual) 1.2 H Eosinophils # (Manual) 0.4 Basophils # (Manual) 0.0 Differential Comment MANUAL DIFFERENTIAL Platelet Estimate NORMAL (130-450,000) Platelet Morphology NORMAL APPEARANCE RBC Morph Micro Appear NORMAL APPEARANCE VBG pH 7.301 L VBG pCO2 51.1 H VBG pO2 36.2 VBG HCO3 24.6 VBG Total CO2 26.2 VBG O2 Saturation 68.6 VBG Base Excess -2.6 L Sodium 141 Potassium 2.8 L Chloride 101 Carbon Dioxide 26 Anion Gap 14.0 H BUN 8 Creatinine 0.5 L Estimated GFR (MDRD) 136 Glucose 105 H Calcium 9.5 Phosphorus 3.7 Magnesium 1.9 Total Bilirubin 0.3 AST 17 ALT 13 Alkaline Phosphatase 122 H Total Protein 8.2 Albumin 4.5 Globulin 3.7 Albumin/Globulin Ratio 1.2 Nasal Adenovirus (PCR) Nasal B. parapertussis DNA (PCR) Nasal Coronavir 229E PCR Nasal Coronavir HKU1 PCR Nasal Coronavir NL63 PCR Nasal Coronavir OC43 PCR Nasal Enterovir/Rhinovir PCR Nasal Influenza B PCR Nasal Influenza A PCR Nasal Parainfluen 1 PCR Nasal Parainfluen 2 PCR Nasal Parainfluen 3 PCR Nasal Parainfluen 4 PCR Nasal RSV (PCR) Nasal B.pertussis DNA PCR Nasal C.pneumoniae (PCR) Melquiades Human Metapneumo PCR Nasal M.pneumoniae (PCR) Nasal SARS-CoV-2 (PCR) 08/21/23 18:23 WBC RBC Hgb Hct MCV MCH MCHC RDW Plt Count MPV Neut # (Auto) Lymph # (Auto) [place] # (Auto) Eos # (Auto) Baso # (Auto) Absolute Nucleated RBC Total Counted Band Neuts % (Manual) Reactive Lymphs % (Man) Abnorm Lymph % (Manual) Nucleated RBC % Neutrophils # (Manual) Lymphocytes # (Manual) Monocytes # (Manual) Eosinophils # (Manual) Basophils # (Manual) Differential Comment Platelet Estimate Platelet Morphology RBC Morph Micro Appear VBG pH VBG pCO2 VBG pO2 VBG HCO3 VBG Total CO2 VBG O2 Saturation VBG Base Excess Sodium Potassium Chloride Carbon Dioxide Anion Gap BUN Creatinine Estimated GFR (MDRD) Glucose Calcium Phosphorus Magnesium Total Bilirubin AST ALT Alkaline Phosphatase Total Protein Albumin Globulin Albumin/Globulin Ratio Nasal Adenovirus (PCR) NOT DETECTED Nasal B. parapertussis DNA (PCR) NOT DETECTED Nasal Coronavir 229E PCR NOT DETECTED Nasal Coronavir HKU1 PCR NOT DETECTED Nasal Coronavir NL63 PCR NOT DETECTED Nasal Coronavir OC43 PCR NOT DETECTED Nasal Enterovir/Rhinovir PCR DETECTED A Nasal Influenza B PCR NOT DETECTED Nasal Influenza A PCR NOT DETECTED Nasal Parainfluen 1 PCR NOT DETECTED Nasal Parainfluen 2 PCR NOT DETECTED Nasal Parainfluen 3 PCR NOT DETECTED Nasal Parainfluen 4 PCR NOT DETECTED Nasal RSV (PCR) NOT DETECTED Nasal B.pertussis DNA PCR NOT DETECTED Nasal C.pneumoniae (PCR) NOT DETECTED Melquiades Human Metapneumo PCR NOT DETECTED Nasal M.pneumoniae (PCR) NOT DETECTED Nasal SARS-CoV-2 (PCR) NOT DETECTED - Rads (name of study) Single view chest x-ray is clear Relevant Findings:: Final report received, EMP independent interpretation of test PD Medical Decision Making - ED course ED course: 43-year-old woman presents with status asthmaticus with wheezing. Workup in the emergency department she was seen to on initial arrival and she had already received 3 DuoNebs and Solu-Medrol IV en route. She was still in significant respiratory distress and to this I added 5 mg (4 unit doses) of Xopenex, intramuscular epinephrine, and magnesium sulfate. On recheck at 7:24 PM she was still somewhat wheezy but no longer in respiratory distress. She had a 6 L oxygen requirement and decision was made to admit her in telehealth consultation placed at 7:23 PM. - Critical Care Time(min): 40 Time Includes: Direct patient care, Review records, Reassess patient, Document care, Coordinate care, Medical consult, Family consult for tx dec Data interpretation: Labs, Pulse ox, CXR Procedures included in critical care time: Peripheral IV Procedures excluded from critical care time: EKG Departure - Departure Disposition: 66 [facility] DC/Xfer Clinical Impression: COPD with exacerbation Respiratory failure Qualifiers: Chronicity: acute Respiratory failure complication: hypoxia Qualified Code(s): J96.01 - Acute respiratory failure with hypoxia Condition: Serious
[2023-08-21] MEDS: EPINEPHrine 1 MG/ML AMP IM STA (18:27)
[2023-08-21 18:28] LABS: VBG BASE EXCESS -2.6 mmol/L (-2 - +2); VBG HCO3 24.6 mmol/L (23-28); VBG PCO2 51.1 mmHg (41-51); VBG PH 7.301 (7.31-7.41); VBG PO2 36.2 mmHg (25-47); VBG TOTAL CO2 26.2 mmol/L (24-29)
[2023-08-21 18:29] LABS: VBG OXYGEN SATURATION 68.6 % (60-80)
[2023-08-21] MEDS: MAGNESIUM SULFATE 2 GRAM 2 GM/50 ML BAG IV ONE (18:29)
[2023-08-21 18:30] LABS: BASOPHILS % (AUTO) 0.7 %; HGB - HEMOGLOBIN 16.2 g/dL (12.0-16.0); LYMPHOCYTES % (AUTO) 12.5 %; MEAN CORPUSCULAR HGB CONC 32.4 g/dL (32.0-36.0); MEAN CORPUSCULAR VOLUME 89.4 fL (81.0-99.0); MONOCYTES % (AUTO) 7.7 %; NEUTROPHILS % (AUTO) 75.6 %; PLT - PLATELET COUNT 358 10^3/uL (130-450); RED BLOOD COUNT 5.59 10^6/uL (4.20-5.40); RED CELL DISTRIBUTION WIDTH 13.4 % (12.0-15.0); WHITE BLOOD COUNT 20.8 x10^3/uL (4.8-10.8)
[2023-08-21 18:31] LABS: ABNORMAL LYMPHS % (MANUAL) 0 %; BAND NEUTROPHILS % (MANUAL) 0 %
[2023-08-21] MEDS: SODIUM CHLORIDE 0.9% 1,000 ML IV STA (18:33)
[2023-08-21] MEDS: LEVALBUTEROL 1.25 MG/3 ML NEB INH STA (18:38)
[2023-08-21 18:44] LABS: ALBUMIN 4.5 g/dL (3.2-5.5); ALBUMIN/GLOBULIN RATIO 1.2 (1.0-2.2); BILIRUBIN,TOTAL 0.3 mg/dL (0.2-1.0); CALCIUM 9.5 mg/dL (8.5-10.3); CREATININE 0.5 mg/dL (0.6-1.3); MAGNESIUM 1.9 mg/dL (1.7-2.3); PHOSPHORUS 3.7 mg/dL (2.5-5.0); POTASSIUM 2.8 mmol/L (3.5-4.5); TOTAL PROTEIN 8.2 g/dL (6.4-8.9)
[2023-08-21 18:51] LABS: EOSINOPHILS # (MANUAL) 0.4 10^3/uL (0-0.7); LYMPHOCYTES # (MANUAL) 3.3 10^3/uL (1.5-3.5); LYMPHOCYTES % (MANUAL) 6 %; MONOCYTES # (MANUAL) 1.2 10^3/uL (0.0-1.0); NEUTROPHILS # (MANUAL) 15.8 10^3/uL (1.5-6.6); PLATELET ESTIMATE, MANUAL NORMAL (130-450,000) (NORMAL); PLATELET MORPHOLOGY NORMAL APPEARANCE (NORMAL); RBC MORPHOLOGY (MULTIPLE) NORMAL APPEARANCE (NORMAL); REACTIVE LYMPHS % (MANUAL) 10 %
[2023-08-21 18:52] LABS: DIFFERENTIAL COMMENT MANUAL DIFFERENTIAL
--- NOTE | 2023-08-21 19:24 | XRAY Report ---
PROCEDURE: Chest 1V INDICATIONS: cough TECHNIQUE: One view of the chest was acquired. COMPARISON: Chest x-ray, 05/04/2022. FINDINGS: Surgical changes and devices: None. Lungs and pleura: No pleural effusions or pneumothorax. Lungs are clear. Mediastinum: Mediastinal contours appear normal. Heart size is normal. Bones and chest wall: Severe scoliosis. No suspicious bony lesions. Overlying soft tissues appear un remarkable. IMPRESSION: No acute cardiopulmonary process. Reviewed by: Rishi Mitchell MD on 08/21/2023 7:22 PM PDT Approved by: Rishi Mitchell MD on 08/21/2023 7:22 PM PDT Station ID: [id number]
[2023-08-21 19:25] LABS: B. PARAPERTUSSIS- RESP PCR PAN NOT DETECTED; B. PERTUSSIS- RESP PCR PANEL NOT DETECTED; C. PNEUMONIAE- RESP PCR PANEL NOT DETECTED; CORONAVIRUS 229E-RESP PCR NOT DETECTED; CORONAVIRUS HKU1-RESP PCR NOT DETECTED; CORONAVIRUS NL63-RESP PCR NOT DETECTED; CORONAVIRUS OC43-RESP PCR NOT DETECTED; HUMAN METAPNEUMOVIRUS NOT DETECTED; INFLUENZA A- RESP PCR PANEL NOT DETECTED; INFLUENZA B - RESP PCR PANEL NOT DETECTED; M. PNEUMONIAE- RESP PCR PANEL NOT DETECTED; PARAINFLUENZA VIRUS 1 NOT DETECTED; PARAINFLUENZA VIRUS 2 NOT DETECTED; PARAINFLUENZA VIRUS 3 NOT DETECTED; PARAINFLUENZA VIRUS 4 NOT DETECTED; RHINOVIRUS/ENTEROVIRUS DETECTED; RSV- RESP PCR PANEL NOT DETECTED; SARS-CoV-2 -RESP PCR PANEL NOT DETECTED
[2023-08-21] MEDS: cefTRIAXone 1 GM VIAL IVP STA (19:51)
[2023-08-21] MEDS: AZITHROMYCIN INJ 500 MG in SODIUM CHLORIDE 0.9% 250 ML IV STA (20:01)
[2023-08-21] MEDS ORDERED: ONDANSETRON 4 MG/2 ML VIAL IVP PRN (20:03)
[2023-08-21] MEDS: POTASSIUM CHLORIDE 20 MEQ TABLET PO STA (20:39)
--- NOTE | 2023-08-21 20:39 | HISTORY & PHYSICAL EXAMINATION ---
Chief Complaint - Chief Complaint Chief Complaint: SOB History of Present Illness - History of Present Illness HPI Comment/Other: 43 y old female with with PMH Ex tobacco abuse, COPD BIBA due to shortness of breath, wheezing for 1 day. As per pt, she has been having cold like symptoms last few days. Denies fever, chest pain, CARNEY, nausea, vomiting, diarrhea, constipation, symptoms Pt was given solumedrol IV and nebs by EMS On presentation, pt was tachypnic, hypoxic Labs showed WBC 20, Hypokalemia In ER, pt was given solumedrol, nebs, iv abx Pt is admitted due to acute hypoxic resp failure due to COPD exacerbation History - Past Medical History Cardiovascular: reports: Murmur Respiratory: reports: None, COPD Neuro: reports: None Endocrine/Autoimmune: reports: None GI: reports: None : reports: None HEENT: reports: None Psych: reports: Depression, Anxiety Musculoskeletal: reports: None Derm: reports: None MRSA Hx?: Yes - POLST Patient has POLST: No Meds/Allgy - Home Medications Home Medications: Ambulatory Orders Medication Instructions Recorded Confirmed ARIPiprazole [Abilify] 5 mg PO DAILY 08/21/23 08/21/23 Albuterol Sulfate [Proair 90 mcg IH Q4HR PRN 08/21/23 08/21/23 Respiclick] Buprenorphine [Sublocade] 1 ea SUBQ ONCE 08/21/23 08/21/23 Citalopram Hydrobromide 20 mg PO DAILY 08/21/23 08/21/23 [Citalopram HBr] Cyclobenzaprine [Flexeril] 10 mg PO TID PRN 08/21/23 08/21/23 Dextroamphetamine/Amphetamine 25 mg PO DAILY 08/21/23 08/21/23 [Dextroamph-Amphet ER 25 mg Cap] Diclofenac Sodium Dr [Voltaren] 75 mg PO BIDAC PRN 08/21/23 08/21/23 Tiotropium [place] [Spiriva] 1 puffs INH DAILY 08/21/23 08/21/23 - Allergies Allergies/Adverse Reactions: Allergies Allergy/AdvReac Type Severity Reaction Status Date / Time No Known Drug Allergies Allergy Verified 08/21/23 19:24 Review of Systems - Other Findings Other Findings: 10 points systems were reviewed and were negative except mentioned in HPI Exam - Vital Signs Vital Signs: Vital Signs x48h Temp Pulse Resp BP Pulse Ox O2 Flow Rate 08/21/23 20:00 109 H 20 141/73 H 94 6 08/21/23 19:30 107 H 15 134/79 H 96 6 08/21/23 19:24 114 H 15 94 6 08/21/23 19:00 114 H 20 116/84 H 93 08/21/23 18:51 111 H 18 126/82 H 93 5 08/21/23 18:40 100 20 4.5 08/21/23 18:21 107 H 20 105/81 H 92 5 08/21/23 18:09 36.8 C 110 H 24 129/92 H 89 L - Physical Exam General Appearance: positive: Mild distress Eyes Bilateral: positive: Normal inspection ENT: positive: ENT inspection nml Neck: positive: Nml inspection Respiratory: positive: Wheezes Cardiovascular: positive: Tachycardia Abdomen: positive: Non-tender, Nml bowel sounds Skin: positive: No rash Extremities: positive: No pedal edema Neurologic/Psychiatric: positive: Oriented x3, Motor nml Conclusion/Plan - Lab Results Fish Bones: 08/21/23 18:20 08/21/23 18:20 - Other Other Results/Comments: A: Acute hypoxic resp failure COPD exacerbation Hypokalemia Anxiety Plan; Admit to med surg with tele Oxygen via [place] Start solumedrol Duo nebs q4h Start Rocephin and zithromax emperically Replace potassium DVT prophylaxic: SCD Full code Pt is admitted as inpatient as more than 2 midnight stay is expected
[2023-08-21] MEDS: methylPREDNISolone SUCCINATE 40 MG/ML VIAL IVP SCH (22:02)
[2023-08-21] MEDS: LORazepam 2 MG/ML VIAL IVP ONE (22:46)
[2023-08-21] MEDS: IPRATROPIUM/ALBUTEROL 3 ML NEB INH SCH (23:00)
[2023-08-21] MEDS ORDERED: MORPHINE 10 MG/ML VIAL IVP STA (23:36)
[2023-08-21] MEDS: MORPHINE 2 MG/ML CARPUJECT IVP ONE (23:53)
--- NOTE | 2023-08-22 00:17 | XRAY Report ---
PROCEDURE: Chest 1V INDICATIONS: sob TECHNIQUE: One view of the chest was acquired. COMPARISON: None FINDINGS: Surgical changes and devices: None. Lungs and pleura: No pleural effusions or pneumothorax. Lungs are clear. Mediastinum: Mediastinal contours appear normal. Heart size is normal. Bones and chest wall: S shaped thoracolumbar scoliosis IMPRESSION: No acute cardiopulmonary findings Reviewed by: Pavan Dinh MD on 08/21/2023 11:15 PM AKDT Approved by: Pavan Dinh MD on 08/21/2023 11:15 PM AKDT Station ID: [id number]
[2023-08-22] MEDS: SODIUM CHLORIDE FLUSH 0.9% 10 ML SYRINGE IVP SCH (01:00)
[2023-08-22] MEDS: IPRATROPIUM/ALBUTEROL 3 ML NEB INH STA (01:30)
[2023-08-22] MEDS: LORazepam 2 MG/ML VIAL IVP ONE (02:10)
[2023-08-22 02:51] LABS: ABG BASE EXCESS -3.4 mmol/L (-2.0-3.0); ABG OXYGEN SATURATION 94 % (94-98); ABG PCO2 52 mmHg (34-45); ABG PH 7.28 (7.35-7.45); ABG PO2 75 mmHg (80-100); ABG TCO2 25.6 MMOL/L (21.0-29.0)
[2023-08-22 02:52] LABS: ALLEN TEST POSITIVE
[2023-08-22] MEDS ORDERED: MORPHINE 10 MG/ML VIAL IVP PRN (02:59)
[2023-08-22] MEDS: LORazepam 2 MG/ML VIAL IVP PRN (03:34)
[2023-08-22 03:42] LABS: INR 1.2 (0.8-1.2)
[2023-08-22 03:43] LABS: BASOPHILS # (AUTO) 0.1 10^3/uL (0.0-0.1); BASOPHILS % (AUTO) 0.2 %; HCT - HEMATOCRIT 44.7 % (37.0-47.0); HGB - HEMOGLOBIN 14.3 g/dL (12.0-16.0); LYMPHOCYTES % (AUTO) 4.3 %; MEAN CORPUSCULAR HEMOGLOBIN 28.8 pg (27.0-31.0); MEAN CORPUSCULAR VOLUME 89.9 fL (81.0-99.0); MONOCYTES # (AUTO) 0.6 10^3/uL (0.0-1.0); MONOCYTES % (AUTO) 2.9 %; NEUTROPHILS # (AUTO) 20.4 10^3/uL (1.5-6.6); NEUTROPHILS % (AUTO) 91.9 %; PLT - PLATELET COUNT 340 10^3/uL (130-450); RED BLOOD COUNT 4.97 10^6/uL (4.20-5.40); RED CELL DISTRIBUTION WIDTH 13.7 % (12.0-15.0); WHITE BLOOD COUNT 22.2 x10^3/uL (4.8-10.8)
[2023-08-22 03:51] LABS: ALBUMIN 4.3 g/dL (3.2-5.5); ALBUMIN/GLOBULIN RATIO 1.4 (1.0-2.2); BILIRUBIN,TOTAL 0.3 mg/dL (0.2-1.0); CALCIUM 8.6 mg/dL (8.5-10.3); CREATININE 0.4 mg/dL (0.6-1.3); POTASSIUM 3.6 mmol/L (3.5-4.5); TOTAL PROTEIN 7.4 g/dL (6.4-8.9)
[2023-08-22 04:25] LABS: DIFFERENTIAL COMMENT MANUAL=AUTO DIFF; PLATELET ESTIMATE, MANUAL INCREASED (>450,000) (NORMAL); PLATELET MORPHOLOGY 1+ LARGE PLATELETS (NORMAL); RBC MORPHOLOGY (MULTIPLE) NORMAL APPEARANCE (NORMAL)
[2023-08-22] MEDS: MORPHINE 2 MG/ML CARPUJECT IVP PRN (06:09)
--- NOTE | 2023-08-22 07:17 | PROVIDER PROGRESS NOTE ---
Assessment/Plan - Current Meds Current Meds: Current Medications Generic Name Dose Route Start Last Admin Trade Name Freq PRN Reason Stop Dose Admin Albuterol/Ipratropium 3 ml 08/21/23 21:00 08/22/23 06:57 Ipratropium/Albuterol 3 Ml Neb INH 3 ml RTQ4H OCTAVIO Administration Lorazepam 1 mg 08/22/23 03:10 08/22/23 03:34 Lorazepam 2 Mg/Ml Vial IVP 1 mg Q2H PRN Administration CIWA >8 Protocol Methylprednisolone 40 mg 08/21/23 21:00 08/22/23 03:29 Methylprednisolone Succinate 40 Mg/Ml Vial IVP 40 mg Q6H OCTAVIO Administration Morphine Sulfate 2 mg 08/22/23 03:09 08/22/23 06:09 Morphine 2 Mg/Ml Carpuject IVP 2 mg Q4HR PRN Administration Moderate Pain (Level 4-6) Sodium Chloride 10 ml 08/22/23 01:00 08/22/23 01:00 Sodium Chloride Flush 0.9% 10 Ml Syringe IVP 10 ml 0100,0900,1700 OCTAVIO Administration - Lab Result Fish Bone Diagrams: 08/22/23 03:30 08/22/23 03:30 - Additional Planning My Orders: My Active Orders 08/22/23 07:13 MAGNESIUM SULFATE 2 GRAMS IV X1 Magnesium Sulfate 2 Gram [Magnesium Sulfate] 2 gm in 50 ml IV ONCE 08/22/23 07:16 Nebulizer/MDI Tx. [RC] QID Resp Teach Nebulizer/MDI [RC] .ONCE Formoterol Fumarate [Perforomist] 20 mcg INH RTBID 08/22/23 08:00 VENOUS BLOOD GAS [BG] Routine Objective Vital Signs: Vital Signs - 24 hr 08/21/23 08/21/23 08/21/23 18:09 18:21 18:40 Temperature 36.8 C Heart Rate 110 H 107 H 100 Heart Rate [ Monitoring electrodes] Respiratory 24 20 20 Rate Blood Pressure 129/92 H 105/81 H Blood Pressure [Right Brachial artery] O2 Saturation 89 L 92 If not protocol 5 4.5 : Oxygen Flow, liters/minute 08/21/23 08/21/23 08/21/23 18:51 19:00 19:24 Temperature Heart Rate 111 H 114 H 114 H Heart Rate [ Monitoring electrodes] Respiratory 18 20 15 Rate Blood Pressure 126/82 H 116/84 H Blood Pressure [Right Brachial artery] O2 Saturation 93 93 94 If not protocol 5 6 : Oxygen Flow, liters/minute 08/21/23 08/21/23 08/21/23 19:30 20:00 20:30 Temperature Heart Rate 107 H 109 H 95 Heart Rate [ Monitoring electrodes] Respiratory 15 20 12 Rate Blood Pressure 134/79 H 141/73 H 130/80 Blood Pressure [Right Brachial artery] O2 Saturation 96 94 91 L If not protocol 6 6 6 : Oxygen Flow, liters/minute 08/21/23 08/21/23 08/21/23 21:15 21:21 22:49 Temperature 37.1 C Heart Rate Heart Rate [ 94 98 Monitoring electrodes] Respiratory 24 20 Rate Blood Pressure Blood Pressure 127/93 H [Right Brachial artery] O2 Saturation 91 L 89 L If not protocol 10 10 10 : Oxygen Flow, liters/minute 08/21/23 08/21/23 08/22/23 23:00 23:42 01:30 Temperature 36.4 C L Heart Rate 109 H 127 H Heart Rate [ 103 H Monitoring electrodes] Respiratory 22 22 24 Rate Blood Pressure Blood Pressure 122/87 H [Right Brachial artery] O2 Saturation 89 L If not protocol 11 10 15 : Oxygen Flow, liters/minute 08/22/23 08/22/23 08/22/23 03:35 06:03 07:01 Temperature 36.6 C 36.7 C Heart Rate 89 Heart Rate [ 100 114 H Monitoring electrodes] Respiratory 24 24 17 Rate Blood Pressure Blood Pressure 115/68 146/86 H [Right Brachial artery] O2 Saturation 92 91 L If not protocol 11 12 15 : Oxygen Flow, liters/minute Oxygen O2 Source Oxymizer Oxygen Flow Rate 5 I&O (Last 24 Hrs): Intake and Output Totals x24h 08/20/23 08/21/23 08/22/23 23:59 23:59 23:59 Intake Total 1850 340 Output Total 300 Balance 1550 340 - Results Results: Laboratory Results WBC 22.2 x10^3/uL (4.8-10.8) H 08/22/23 03:30 RBC 4.97 10^6/uL (4.20-5.40) 08/22/23 03:30 Hgb 14.3 g/dL (12.0-16.0) 08/22/23 03:30 Hct 44.7 % (37.0-47.0) 08/22/23 03:30 MCV 89.9 fL (81.0-99.0) 08/22/23 03:30 MCH 28.8 pg (27.0-31.0) 08/22/23 03:30 MCHC 32.0 g/dL (32.0-36.0) 08/22/23 03:30 RDW 13.7 % (12.0-15.0) 08/22/23 03:30 Plt Count 340 10^3/uL (130-450) 08/22/23 03:30 MPV 9.0 fL (7.9-10.8) 08/22/23 03:30 Neut # (Auto) 20.4 10^3/uL (1.5-6.6) H 08/22/23 03:30 Lymph # (Auto) 1.0 10^3/uL (1.5-3.5) L 08/22/23 03:30 [place] # (Auto) 0.6 10^3/uL (0.0-1.0) 08/22/23 03:30 Eos # (Auto) 0.0 10^3/uL (0.0-0.7) 08/22/23 03:30 Baso # (Auto) 0.1 10^3/uL (0.0-0.1) 08/22/23 03:30 Absolute Nucleated RBC 0.00 x10^3/uL 08/22/23 03:30 Total Counted 100 08/21/23 18:20 Band Neuts % (Manual) Not Reportable 08/22/23 03:30 Reactive Lymphs % (Man) 10 % 08/21/23 18:20 Abnorm Lymph % (Manual) Not Reportable 08/22/23 03:30 Nucleated RBC % 0.0 /100WBC 08/22/23 03:30 Neutrophils # (Manual) Not Reportable 08/22/23 03:30 Lymphocytes # (Manual) Not Reportable 08/22/23 03:30 Monocytes # (Manual) Not Reportable 08/22/23 03:30 Eosinophils # (Manual) Not Reportable 08/22/23 03:30 Basophils # (Manual) Not Reportable 08/22/23 03:30 Differential Comment MANUAL=AUTO DIFF 08/22/23 03:30 Platelet Estimate INCREASED (>450,000) (NORMAL) 08/22/23 03:30 Platelet Morphology 1+ LARGE PLATELETS (NORMAL) 08/22/23 03:30 RBC Morph Micro Appear NORMAL APPEARANCE (NORMAL) 08/22/23 03:30 PT 13.0 secs (9.9-12.6) H 08/22/23 03:30 INR 1.2 (0.8-1.2) 08/22/23 03:30 Bld Gas Analysis Time 0236 08/22/23 02:29 Sample Site RIGHT RADIAL 08/22/23 02:29 ABG pH 7.28 (7.35-7.45) L 08/22/23 02:29 ABG pCO2 52 mmHg (34-45) H 08/22/23 02:29 ABG pO2 75 mmHg (80-100) L 08/22/23 02:29 ABG HCO3 24.0 mmol/L (22.0-26.0) 08/22/23 02:29 ABG Total CO2 25.6 MMOL/L (21.0-29.0) 08/22/23 02:29 ABG O2 Saturation 94 % (94-98) 08/22/23 02:29 ABG Base Excess -3.4 mmol/L (-2.0-3.0) L 08/22/23 02:29 Earl Test POSITIVE 08/22/23 02:29 VBG pH 7.301 (7.31-7.41) L 08/21/23 18:20 VBG pCO2 51.1 mmHg (41-51) H 08/21/23 18:20 VBG pO2 36.2 mmHg (25-47) 08/21/23 18:20 VBG HCO3 24.6 mmol/L (23-28) 08/21/23 18:20 VBG Total CO2 26.2 mmol/L (24-29) 08/21/23 18:20 VBG O2 Saturation 68.6 % (60-80) 08/21/23 18:20 VBG Base Excess -2.6 mmol/L (-2 - +2) L 08/21/23 18:20 O2 Delivery Device OXYMIZER 08/22/23 02:29 O2 Liters/Min 10.00 LPM 08/22/23 02:29 Sodium 136 mmol/L (135-145) 08/22/23 03:30 Potassium 3.6 mmol/L (3.5-4.5) 08/22/23 03:30 Chloride 103 mmol/L (101-111) 08/22/23 03:30 Carbon Dioxide 25 mmol/L (21-32) 08/22/23 03:30 Anion Gap 8.0 (6-13) 08/22/23 03:30 BUN 8 mg/dL (6-20) 08/22/23 03:30 Creatinine 0.4 mg/dL (0.6-1.3) L 08/22/23 03:30 Estimated GFR (MDRD) 176 (>89) 08/22/23 03:30 Glucose 185 mg/dL (74-104) H 08/22/23 03:30 Calcium 8.6 mg/dL (8.5-10.3) 08/22/23 03:30 Phosphorus 3.7 mg/dL (2.5-5.0) 08/21/23 18:20 Magnesium 1.9 mg/dL (1.7-2.3) 08/21/23 18:20 Total Bilirubin 0.3 mg/dL (0.2-1.0) 08/22/23 03:30 AST 20 IU/L (10-42) 08/22/23 03:30 ALT 14 IU/L (10-60) 08/22/23 03:30 Alkaline Phosphatase 107 IU/L (42-121) 08/22/23 03:30 Total Protein 7.4 g/dL (6.4-8.9) 08/22/23 03:30 Albumin 4.3 g/dL (3.2-5.5) 08/22/23 03:30 Globulin 3.1 g/dL (2.1-4.2) 08/22/23 03:30 Albumin/Globulin Ratio 1.4 (1.0-2.2) 08/22/23 03:30 Nasal Adenovirus (PCR) NOT DETECTED 08/21/23 18:23 Nasal B. parapertussis DNA (PCR) NOT DETECTED 08/21/23 18:23 Nasal Coronavir 229E PCR NOT DETECTED 08/21/23 18:23 Nasal Coronavir HKU1 PCR NOT DETECTED 08/21/23 18:23 Nasal Coronavir NL63 PCR NOT DETECTED 08/21/23 18:23 Nasal Coronavir OC43 PCR NOT DETECTED 08/21/23 18:23 Nasal Enterovir/Rhinovir PCR DETECTED A 08/21/23 18:23 Nasal Influenza B PCR NOT DETECTED 08/21/23 18:23 Nasal Influenza A PCR NOT DETECTED 08/21/23 18:23 Nasal Parainfluen 1 PCR NOT DETECTED 08/21/23 18:23 Nasal Parainfluen 2 PCR NOT DETECTED 08/21/23 18:23 Nasal Parainfluen 3 PCR NOT DETECTED 08/21/23 18:23 Nasal Parainfluen 4 PCR NOT DETECTED 08/21/23 18:23 Nasal RSV (PCR) NOT DETECTED 08/21/23 18:23 Nasal B.pertussis DNA PCR NOT DETECTED 08/21/23 18:23 Nasal C.pneumoniae (PCR) NOT DETECTED 08/21/23 18:23 Melquiades Human Metapneumo PCR NOT DETECTED 08/21/23 18:23 Nasal M.pneumoniae (PCR) NOT DETECTED 08/21/23 18:23 Nasal SARS-CoV-2 (PCR) NOT DETECTED 08/21/23 18:23
[2023-08-22] MEDS: FORMOTEROL FUMARATE NEB 20 MCG/2 ML INH SCH (07:36)
[2023-08-22] MEDS: MAGNESIUM SULFATE 2 GRAM 2 GM/50 ML BAG IV ONE (07:52)
[2023-08-22 08:38] LABS: VBG BASE EXCESS -0.5 mmol/L (-2 - +2); VBG HCO3 25.6 mmol/L (23-28); VBG OXYGEN SATURATION 89.1 % (60-80); VBG PCO2 47.2 mmHg (41-51); VBG PH 7.352 (7.31-7.41); VBG PO2 52.7 mmHg (25-47)
[2023-08-22 10:13] LABS: ABG HCO3 27.1 mmol/L (22.0-26.0); ABG OXYGEN SATURATION 96 % (94-98); ABG PCO2 49 mmHg (34-45); ABG PH 7.37 (7.35-7.45); ABG PO2 78 mmHg (80-100); ABG TCO2 28.6 MMOL/L (21.0-29.0); ALLEN TEST POSITIVE
[2023-08-22] MEDS ORDERED: LORazepam 2 MG/ML VIAL IVP PRN (10:27)
--- NOTE | 2023-08-22 14:50 | PHARMACY PROGRESS NOTE ---
- Best Possible Medication History Admit Date and Time: 08/21/232002 Processed by: Nursing Medications reviewed in ED?: Yes Medication History completed: Yes Patient Interview: Completed (BY ED RN) Secondary Source(s): Physician records, Pharmacy records, Insurance records As the person ultimately responsible for medication therapy, providers are able to order a medication from an existing home medication list in [facility] via the "Reconcile Routine" prior to Confirmation of that medication by sales support specialist. Such practice is discouraged except when the physician, in their clinical judgment, deems that a medical need exists for a medication without regard to previous use.
[2023-08-22] MEDS ORDERED: diazePAM 5 MG TABLET PO SCH (16:39)
[2023-08-22] MEDS: diazePAM 5 MG TABLET PO ONE (17:08)
[2023-08-22] MEDS ORDERED: SODIUM CHLORIDE 0.9% 1,000 ML IV SCH (18:00)
[2023-08-22] MEDS: cefTRIAXone 1 GM in SODIUM CHLORIDE 0.9% MINIBAG 100 ML IV SCH (19:55)
--- NOTE | 2023-08-22 20:36 | PROVIDER PROGRESS NOTE ---
Assessment/Plan - Problem List (1) COPD with exacerbation Assessment/Plan: Continue IV corticosteroids, bronchodilators and long-acting bronchodilators for COPD exacerbation. Patient demonstrates no definite opacity on her chest x-ray. Given her leukocytosis prophylactic antibiotics will be continued with ceftriaxone and azithromycin. (2) Acute hypoxemic respiratory failure Assessment/Plan: Acute hypoxemic respiratory failure secondary to COPD exacerbation. She appears to be improving from a respiratory standpoint. Continue to monitor. (3) Alcohol Withdrawal Syndrome Assessment/Plan: Patient currently has a mild withdrawal syndrome. Treatment has been initiated with diazepam 5 mg 3 times a day. Dose can be escalated as needed. If dose is escalated, [facility] protocolfor symptom triggered therapy (4) Hypokalemia Assessment/Plan: Potassium has been replaced continue to monitor. (5) Tobacco Dependence Assessment/Plan: Patient counseled to quit smoking. - Current Meds Current Meds: Current Medications Generic Name Dose Route Start Last Admin Trade Name Freq PRN Reason Stop Dose Admin Albuterol/Ipratropium 3 ml 08/21/23 21:00 08/22/23 18:35 Ipratropium/Albuterol 3 Ml Neb INH 3 ml RTQ4H OCTAVIO Administration Formoterol Fumarate 20 mcg 08/22/23 07:16 08/22/23 18:35 Formoterol Fumarate Neb 20 Mcg/2 Ml INH 20 mcg RTBID OCTAVIO Administration Ceftriaxone Sodium 1 gm/ 100 mls @ 200 mls/hr 08/22/23 20:00 08/22/23 19:55 Sodium Chloride IV 200 mls/hr Q24H OCTAVIO Administration Methylprednisolone 40 mg 08/21/23 21:00 08/22/23 14:47 Methylprednisolone Succinate 40 Mg/Ml Vial IVP 40 mg Q6H OCTAVIO Administration Sodium Chloride 10 ml 08/22/23 01:00 08/22/23 17:07 Sodium Chloride Flush 0.9% 10 Ml Syringe IVP 10 ml 0100,0900,1700 OCTAVIO Administration - Lab Result Fish Bone Diagrams: 08/22/23 03:30 08/22/23 03:30 - Additional Planning My Orders: My Active Orders 08/22/23 07:16 Formoterol Fumarate [Perforomist] 20 mcg INH RTBID 08/22/23 10:27 LORazepam INJ [Ativan Inj (Vial)] 1 mg IVP Q6H PRN 08/22/23 19:49 Telemetry- [RC] Q4HR 08/22/23 22:00 diazePAM [Valium] 5 mg PO TID Subjective - Subjective Patient Reports: Other (Alert. She reports her breathing has improved since admission. Her breathing is not close to its baseline at this time. She denies chest pain and abdominal pain. She reports drinking at least 6 alcoholic beverages each day. She denies using any other substances. She continues to vape.) Objective Vital Signs: Vital Signs - 24 hr 08/21/23 08/21/23 08/21/23 21:15 21:21 22:49 Temperature 37.1 C Heart Rate Heart Rate [ 94 98 Monitoring electrodes] Respiratory 24 20 Rate Blood Pressure 127/93 H [Right Brachial artery] O2 Saturation 91 L 89 L If not protocol 10 10 10 : Oxygen Flow, liters/minute 08/21/23 08/21/23 08/22/23 23:00 23:42 01:30 Temperature 36.4 C L Heart Rate 109 H 127 H Heart Rate [ 103 H Monitoring electrodes] Respiratory 22 22 24 Rate Blood Pressure 122/87 H [Right Brachial artery] O2 Saturation 89 L If not protocol 11 10 15 : Oxygen Flow, liters/minute 08/22/23 08/22/23 08/22/23 03:35 06:03 07:01 Temperature 36.6 C 36.7 C Heart Rate 89 Heart Rate [ 100 114 H Monitoring electrodes] Respiratory 24 24 17 Rate Blood Pressure 115/68 146/86 H [Right Brachial artery] O2 Saturation 92 91 L If not protocol 11 12 15 : Oxygen Flow, liters/minute 08/22/23 08/22/23 08/22/23 07:39 08:00 09:19 Temperature 36.7 C Heart Rate 78 79 Heart Rate [ 71 Monitoring electrodes] Respiratory 16 22 16 Rate Blood Pressure 125/84 H [Right Brachial artery] O2 Saturation 97 If not protocol 15 12 12 : Oxygen Flow, liters/minute 08/22/23 08/22/23 08/22/23 12:31 15:13 15:58 Temperature 36.7 C Heart Rate 101 H 99 Heart Rate [ 117 H Monitoring electrodes] Respiratory 20 19 18 Rate Blood Pressure 127/78 [Right Brachial artery] O2 Saturation 99 If not protocol 10 6 8 : Oxygen Flow, liters/minute 08/22/23 08/22/23 16:32 18:35 Temperature Heart Rate 88 Heart Rate [ Monitoring electrodes] Respiratory 16 22 Rate Blood Pressure [Right Brachial artery] O2 Saturation 96 If not protocol 6 4 : Oxygen Flow, liters/minute Oxygen O2 Source Nasal cannula Oxygen Flow Rate 5 I&O (Last 24 Hrs): Intake and Output Totals x24h 08/20/23 08/21/23 08/22/23 23:59 23:59 23:59 Intake Total 1850 1730 Output Total 300 Balance 1550 1730 General: Alert, Oriented x3, Cooperative HEENT: Atraumatic Neck: No JVD, No thyromegaly Neuro: Alert, Non Focal Cardiovascular: Other (Positive S1-S2 no extra heart sounds.) Respiratory: Other (Fair air exchange in all lung [place]. Positive diffuse expiratory wheezing. No crackles.) Abdomen: Other (Soft nontender positive bowel sounds) Extremities: No cyanosis, No edema Skin: No rashes - Results Results: Laboratory Results WBC 22.2 x10^3/uL (4.8-10.8) H 08/22/23 03:30 RBC 4.97 10^6/uL (4.20-5.40) 08/22/23 03:30 Hgb 14.3 g/dL (12.0-16.0) 08/22/23 03:30 Hct 44.7 % (37.0-47.0) 08/22/23 03:30 MCV 89.9 fL (81.0-99.0) 08/22/23 03:30 MCH 28.8 pg (27.0-31.0) 08/22/23 03:30 MCHC 32.0 g/dL (32.0-36.0) 08/22/23 03:30 RDW 13.7 % (12.0-15.0) 08/22/23 03:30 Plt Count 340 10^3/uL (130-450) 08/22/23 03:30 MPV 9.0 fL (7.9-10.8) 08/22/23 03:30 Neut # (Auto) 20.4 10^3/uL (1.5-6.6) H 08/22/23 03:30 Lymph # (Auto) 1.0 10^3/uL (1.5-3.5) L 08/22/23 03:30 [place] # (Auto) 0.6 10^3/uL (0.0-1.0) 08/22/23 03:30 Eos # (Auto) 0.0 10^3/uL (0.0-0.7) 08/22/23 03:30 Baso # (Auto) 0.1 10^3/uL (0.0-0.1) 08/22/23 03:30 Absolute Nucleated RBC 0.00 x10^3/uL 08/22/23 03:30 Total Counted 100 08/21/23 18:20 Band Neuts % (Manual) Not Reportable 08/22/23 03:30 Reactive Lymphs % (Man) 10 % 08/21/23 18:20 Abnorm Lymph % (Manual) Not Reportable 08/22/23 03:30 Nucleated RBC % 0.0 /100WBC 08/22/23 03:30 Neutrophils # (Manual) Not Reportable 08/22/23 03:30 Lymphocytes # (Manual) Not Reportable 08/22/23 03:30 Monocytes # (Manual) Not Reportable 08/22/23 03:30 Eosinophils # (Manual) Not Reportable 08/22/23 03:30 Basophils # (Manual) Not Reportable 08/22/23 03:30 Differential Comment MANUAL=AUTO DIFF 08/22/23 03:30 Platelet Estimate INCREASED (>450,000) (NORMAL) 08/22/23 03:30 Platelet Morphology 1+ LARGE PLATELETS (NORMAL) 08/22/23 03:30 RBC Morph Micro Appear NORMAL APPEARANCE (NORMAL) 08/22/23 03:30 PT 13.0 secs (9.9-12.6) H 08/22/23 03:30 INR 1.2 (0.8-1.2) 08/22/23 03:30 Bld Gas Analysis Time 0815 08/22/23 08:15 Sample Site RIGHT RADIAL 08/22/23 08:15 ABG pH 7.37 (7.35-7.45) 08/22/23 08:15 ABG pCO2 49 mmHg (34-45) H 08/22/23 08:15 ABG pO2 78 mmHg (80-100) L 08/22/23 08:15 ABG HCO3 27.1 mmol/L (22.0-26.0) H 08/22/23 08:15 ABG Total CO2 28.6 MMOL/L (21.0-29.0) 08/22/23 08:15 ABG O2 Saturation 96 % (94-98) 08/22/23 08:15 ABG Base Excess 1.0 mmol/L (-2.0-3.0) 08/22/23 08:15 Earl Test POSITIVE 08/22/23 08:15 VBG pH 7.352 (7.31-7.41) 08/22/23 08:33 VBG pCO2 47.2 mmHg (41-51) 08/22/23 08:33 VBG pO2 52.7 mmHg (25-47) H 08/22/23 08:33 VBG HCO3 25.6 mmol/L (23-28) 08/22/23 08:33 VBG Total CO2 27.0 mmol/L (24-29) 08/22/23 08:33 VBG O2 Saturation 89.1 % (60-80) H 08/22/23 08:33 VBG Base Excess -0.5 mmol/L (-2 - +2) 08/22/23 08:33 O2 Delivery Device OXYMIZER 08/22/23 08:15 O2 Liters/Min 12.00 LPM 08/22/23 08:15 Sodium 136 mmol/L (135-145) 08/22/23 03:30 Potassium 3.6 mmol/L (3.5-4.5) 08/22/23 03:30 Chloride 103 mmol/L (101-111) 08/22/23 03:30 Carbon Dioxide 25 mmol/L (21-32) 08/22/23 03:30 Anion Gap 8.0 (6-13) 08/22/23 03:30 BUN 8 mg/dL (6-20) 08/22/23 03:30 Creatinine 0.4 mg/dL (0.6-1.3) L 08/22/23 03:30 Estimated GFR (MDRD) 176 (>89) 08/22/23 03:30 Glucose 185 mg/dL (74-104) H 08/22/23 03:30 Calcium 8.6 mg/dL (8.5-10.3) 08/22/23 03:30 Phosphorus 3.7 mg/dL (2.5-5.0) 08/21/23 18:20 Magnesium 1.9 mg/dL (1.7-2.3) 08/21/23 18:20 Total Bilirubin 0.3 mg/dL (0.2-1.0) 08/22/23 03:30 AST 20 IU/L (10-42) 08/22/23 03:30 ALT 14 IU/L (10-60) 08/22/23 03:30 Alkaline Phosphatase 107 IU/L (42-121) 08/22/23 03:30 Total Protein 7.4 g/dL (6.4-8.9) 08/22/23 03:30 Albumin 4.3 g/dL (3.2-5.5) 08/22/23 03:30 Globulin 3.1 g/dL (2.1-4.2) 08/22/23 03:30 Albumin/Globulin Ratio 1.4 (1.0-2.2) 08/22/23 03:30 Nasal Adenovirus (PCR) NOT DETECTED 08/21/23 18:23 Nasal B. parapertussis DNA (PCR) NOT DETECTED 08/21/23 18:23 Nasal Coronavir 229E PCR NOT DETECTED 08/21/23 18:23 Nasal Coronavir HKU1 PCR NOT DETECTED 08/21/23 18:23 Nasal Coronavir NL63 PCR NOT DETECTED 08/21/23 18:23 Nasal Coronavir OC43 PCR NOT DETECTED 08/21/23 18:23 Nasal Enterovir/Rhinovir PCR DETECTED A 08/21/23 18:23 Nasal Influenza B PCR NOT DETECTED 08/21/23 18:23 Nasal Influenza A PCR NOT DETECTED 08/21/23 18:23 Nasal Parainfluen 1 PCR NOT DETECTED 08/21/23 18:23 Nasal Parainfluen 2 PCR NOT DETECTED 08/21/23 18:23 Nasal Parainfluen 3 PCR NOT DETECTED 08/21/23 18:23 Nasal Parainfluen 4 PCR NOT DETECTED 08/21/23 18:23 Nasal RSV (PCR) NOT DETECTED 08/21/23 18:23 Nasal B.pertussis DNA PCR NOT DETECTED 08/21/23 18:23 Nasal C.pneumoniae (PCR) NOT DETECTED 08/21/23 18:23 Melquiades Human Metapneumo PCR NOT DETECTED 08/21/23 18:23 Nasal M.pneumoniae (PCR) NOT DETECTED 08/21/23 18:23 Nasal SARS-CoV-2 (PCR) NOT DETECTED 08/21/23 18:23
[2023-08-22] MEDS: AZITHROMYCIN INJ 500 MG in SODIUM CHLORIDE 0.9% 250 ML IV SCH (21:31)
[2023-08-22] MEDS: diazePAM 5 MG TABLET PO SCH (21:32)
[2023-08-23 05:49] LABS: HCT - HEMATOCRIT 42.9 % (37.0-47.0); HGB - HEMOGLOBIN 14.1 g/dL (12.0-16.0); MEAN CORPUSCULAR HEMOGLOBIN 29.4 pg (27.0-31.0); MEAN CORPUSCULAR HGB CONC 32.9 g/dL (32.0-36.0); MEAN CORPUSCULAR VOLUME 89.6 fL (81.0-99.0); MEAN PLATELET VOLUME 9.2 fL (7.9-10.8); RED BLOOD COUNT 4.79 10^6/uL (4.20-5.40); WHITE BLOOD COUNT 26.3 x10^3/uL (4.8-10.8)
[2023-08-23 06:47] LABS: CALCIUM 9.1 mg/dL (8.5-10.3); CREATININE 0.4 mg/dL (0.6-1.3); MAGNESIUM 2.2 mg/dL (1.7-2.3); PHOSPHORUS 2.6 mg/dL (2.5-5.0); POTASSIUM 4.5 mmol/L (3.5-4.5)
[2023-08-23] MEDS: DOCUSATE SODIUM 250 MG CAPSULE PO SCH (13:20)
[2023-08-23] MEDS: polyethylene glycoL 3350 17 GM PACKET PO SCH (13:20)
--- NOTE | 2023-08-23 18:56 | PROVIDER PROGRESS NOTE ---
Assessment/Plan - Problem List (1) COPD with exacerbation Assessment/Plan: Continue IV corticosteroids, bronchodilators and long-acting bronchodilators for COPD exacerbation. Patient demonstrates no definite opacity on her chest x-ray. Given her increased leukocytosis(26 K today) prophylactic antibiotics will be continued with ceftriaxone and azithromycin. (2) Acute hypoxemic respiratory failure Assessment/Plan: Acute hypoxemic respiratory failure secondary to COPD exacerbation. She appears to be improving from a respiratory standpoint. Continue to monitor. (3) Alcohol Withdrawal Syndrome Assessment/Plan: Patient currently has a mild withdrawal syndrome. Treatment has been initiated with diazepam 5 mg 3 times a day. Dose can be escalated as needed. If dose is escalated, [facility] protocolfor symptom triggered therapy (4) Hypokalemia Assessment/Plan: Potassium has been replaced continue to monitor. (5) Tobacco Dependence Assessment/Plan: Patient counseled to quit smoking. - Current Meds Current Meds: Current Medications Generic Name Dose Route Start Last Admin Trade Name Freq PRN Reason Stop Dose Admin Albuterol/Ipratropium 3 ml 08/21/23 21:00 08/23/23 15:26 Ipratropium/Albuterol 3 Ml Neb INH 3 ml RTQ4H OCTAVIO Administration Diazepam 5 mg 08/22/23 22:00 08/23/23 13:20 Diazepam 5 Mg Tablet PO 5 mg TID OCTAVIO Administration Docusate Sodium 250 - 500 mg 08/23/23 13:14 08/23/23 13:20 Docusate Sodium 250 Mg Capsule PO 250 mg DAILY OCTAVIO Administration Formoterol Fumarate 20 mcg 08/22/23 07:16 08/23/23 06:05 Formoterol Fumarate Neb 20 Mcg/2 Ml INH 20 mcg RTBID OCTAVIO Administration Ceftriaxone Sodium 1 gm/ 100 mls @ 200 mls/hr 08/22/23 20:00 08/22/23 20:35 Sodium Chloride IV 08/25/23 20:29 Infused Q24H OCTAVIO Infusion Azithromycin 500 mg/ Sodium 250 mls @ 250 mls/hr 08/22/23 21:00 08/22/23 22:35 Chloride IV 08/23/23 21:59 Infused Q24H OCTAVIO Infusion Methylprednisolone 40 mg 08/21/23 21:00 08/23/23 15:01 Methylprednisolone Succinate 40 Mg/Ml Vial IVP 40 mg Q6H OCTAVIO Administration Polyethylene Glycol 17 gm 08/23/23 13:14 08/23/23 13:20 Polyethylene Glycol 3350 17 Gm Packet PO 17 gm DAILY OCTAVIO Administration Sodium Chloride 10 ml 08/22/23 01:00 08/23/23 15:55 Sodium Chloride Flush 0.9% 10 Ml Syringe IVP 10 ml 0100,0900,1700 OCTAVIO Administration - Lab Result Fish Bone Diagrams: 08/23/23 05:40 08/23/23 05:40 - Additional Planning My Orders: My Active Orders 08/22/23 19:49 Telemetry- [RC] Q4HR 08/22/23 22:00 diazePAM [Valium] 5 mg PO TID 08/23/23 21:00 guaiFENesin [Mucinex] 600 mg PO BID Subjective - Subjective Patient Reports: Other (Alert. Breathing has improved but is not close to baseline. She denies chest pain abdominal pain. She denies fevers and chills. She has no other complaints at this time.) Objective Vital Signs: Vital Signs - 24 hr 08/22/23 08/22/23 08/23/23 21:00 23:52 05:13 Temperature 36.7 C 36.6 C 36.5 C Heart Rate Heart Rate [ Brachial] Heart Rate [ 94 99 74 Monitoring electrodes] Respiratory 16 16 16 Rate Blood Pressure 110/64 121/84 H 118/81 H [Right Brachial artery] O2 Saturation 95 95 94 If not protocol 4 3 2 : Oxygen Flow, liters/minute 08/23/23 08/23/23 08/23/23 06:05 09:00 13:00 Temperature 36.8 C 37 C Heart Rate 75 Heart Rate [ 96 101 H Brachial] Heart Rate [ Monitoring electrodes] Respiratory 16 18 18 Rate Blood Pressure 114/68 111/74 [Right Brachial artery] O2 Saturation 94 96 If not protocol 2 2 2 : Oxygen Flow, liters/minute 08/23/23 08/23/23 08/23/23 15:26 15:27 15:56 Temperature 36.7 C Heart Rate 80 Heart Rate [ Brachial] Heart Rate [ 105 H Monitoring electrodes] Respiratory 20 16 Rate Blood Pressure 108/71 [Right Brachial artery] O2 Saturation 96 If not protocol 2 : Oxygen Flow, liters/minute Oxygen O2 Source Room air Oxygen Flow Rate 5 I&O (Last 24 Hrs): Intake and Output Totals x24h 05/08/1008/22/23 08/23/23 23:59 23:59 23:59 Intake Total 1850 2480 1260 Output Total 300 Balance 1550 2480 1260 General: Alert, Oriented x3, No acute distress Neck: Supple, No JVD, No thyromegaly Neuro: Alert, Non Focal Cardiovascular: Other (Positive S1-S2 no extra heart sounds) Respiratory: Other (Fair air exchange in all lung feels diffuse wheezing bilaterally no crackles.) Abdomen: Other (Soft nontender positive bowel sounds) Extremities: No cyanosis, No edema Skin: No rashes - Results Results: Laboratory Results WBC 26.3 x10^3/uL (4.8-10.8) H 08/23/23 05:40 RBC 4.79 10^6/uL (4.20-5.40) 08/23/23 05:40 Hgb 14.1 g/dL (12.0-16.0) 08/23/23 05:40 Hct 42.9 % (37.0-47.0) 08/23/23 05:40 MCV 89.6 fL (81.0-99.0) 08/23/23 05:40 MCH 29.4 pg (27.0-31.0) 08/23/23 05:40 MCHC 32.9 g/dL (32.0-36.0) 08/23/23 05:40 RDW 14.0 % (12.0-15.0) 08/23/23 05:40 Plt Count 352 10^3/uL (130-450) 08/23/23 05:40 MPV 9.2 fL (7.9-10.8) 08/23/23 05:40 Neut # (Auto) 20.4 10^3/uL (1.5-6.6) H 08/22/23 03:30 Lymph # (Auto) 1.0 10^3/uL (1.5-3.5) L 08/22/23 03:30 [place] # (Auto) 0.6 10^3/uL (0.0-1.0) 08/22/23 03:30 Eos # (Auto) 0.0 10^3/uL (0.0-0.7) 08/22/23 03:30 Baso # (Auto) 0.1 10^3/uL (0.0-0.1) 08/22/23 03:30 Absolute Nucleated RBC 0.00 x10^3/uL 08/22/23 03:30 Total Counted 100 08/21/23 18:20 Band Neuts % (Manual) Not Reportable 08/22/23 03:30 Reactive Lymphs % (Man) 10 % 08/21/23 18:20 Abnorm Lymph % (Manual) Not Reportable 08/22/23 03:30 Nucleated RBC % 0.0 /100WBC 08/22/23 03:30 Neutrophils # (Manual) Not Reportable 08/22/23 03:30 Lymphocytes # (Manual) Not Reportable 08/22/23 03:30 Monocytes # (Manual) Not Reportable 08/22/23 03:30 Eosinophils # (Manual) Not Reportable 08/22/23 03:30 Basophils # (Manual) Not Reportable 08/22/23 03:30 Differential Comment MANUAL=AUTO DIFF 08/22/23 03:30 Platelet Estimate INCREASED (>450,000) (NORMAL) 08/22/23 03:30 Platelet Morphology 1+ LARGE PLATELETS (NORMAL) 08/22/23 03:30 RBC Morph Micro Appear NORMAL APPEARANCE (NORMAL) 08/22/23 03:30 PT 13.0 secs (9.9-12.6) H 08/22/23 03:30 INR 1.2 (0.8-1.2) 08/22/23 03:30 Bld Gas Analysis Time 0815 08/22/23 08:15 Sample Site RIGHT RADIAL 08/22/23 08:15 ABG pH 7.37 (7.35-7.45) 08/22/23 08:15 ABG pCO2 49 mmHg (34-45) H 08/22/23 08:15 ABG pO2 78 mmHg (80-100) L 08/22/23 08:15 ABG HCO3 27.1 mmol/L (22.0-26.0) H 08/22/23 08:15 ABG Total CO2 28.6 MMOL/L (21.0-29.0) 08/22/23 08:15 ABG O2 Saturation 96 % (94-98) 08/22/23 08:15 ABG Base Excess 1.0 mmol/L (-2.0-3.0) 08/22/23 08:15 Earl Test POSITIVE 08/22/23 08:15 VBG pH 7.352 (7.31-7.41) 08/22/23 08:33 VBG pCO2 47.2 mmHg (41-51) 08/22/23 08:33 VBG pO2 52.7 mmHg (25-47) H 08/22/23 08:33 VBG HCO3 25.6 mmol/L (23-28) 08/22/23 08:33 VBG Total CO2 27.0 mmol/L (24-29) 08/22/23 08:33 VBG O2 Saturation 89.1 % (60-80) H 08/22/23 08:33 VBG Base Excess -0.5 mmol/L (-2 - +2) 08/22/23 08:33 O2 Delivery Device OXYMIZER 08/22/23 08:15 O2 Liters/Min 12.00 LPM 08/22/23 08:15 Sodium 136 mmol/L (135-145) 08/23/23 05:40 Potassium 4.5 mmol/L (3.5-4.5) 08/23/23 05:40 Chloride 100 mmol/L (101-111) L 08/23/23 05:40 Carbon Dioxide 32 mmol/L (21-32) 08/23/23 05:40 Anion Gap 4.0 (6-13) L 08/23/23 05:40 BUN 11 mg/dL (6-20) 08/23/23 05:40 Creatinine 0.4 mg/dL (0.6-1.3) L 08/23/23 05:40 Estimated GFR (MDRD) 176 (>89) 08/23/23 05:40 Glucose 133 mg/dL (74-104) H 08/23/23 05:40 Calcium 9.1 mg/dL (8.5-10.3) 08/23/23 05:40 Phosphorus 2.6 mg/dL (2.5-5.0) 08/23/23 05:40 Magnesium 2.2 mg/dL (1.7-2.3) 08/23/23 05:40 Total Bilirubin 0.3 mg/dL (0.2-1.0) 08/22/23 03:30 AST 20 IU/L (10-42) 08/22/23 03:30 ALT 14 IU/L (10-60) 08/22/23 03:30 Alkaline Phosphatase 107 IU/L (42-121) 08/22/23 03:30 Total Protein 7.4 g/dL (6.4-8.9) 08/22/23 03:30 Albumin 4.3 g/dL (3.2-5.5) 08/22/23 03:30 Globulin 3.1 g/dL (2.1-4.2) 08/22/23 03:30 Albumin/Globulin Ratio 1.4 (1.0-2.2) 08/22/23 03:30 Nasal Adenovirus (PCR) NOT DETECTED 08/21/23 18:23 Nasal B. parapertussis DNA (PCR) NOT DETECTED 08/21/23 18:23 Nasal Coronavir 229E PCR NOT DETECTED 08/21/23 18:23 Nasal Coronavir HKU1 PCR NOT DETECTED 08/21/23 18:23 Nasal Coronavir NL63 PCR NOT DETECTED 08/21/23 18:23 Nasal Coronavir OC43 PCR NOT DETECTED 08/21/23 18:23 Nasal Enterovir/Rhinovir PCR DETECTED A 08/21/23 18:23 Nasal Influenza B PCR NOT DETECTED 08/21/23 18:23 Nasal Influenza A PCR NOT DETECTED 08/21/23 18:23 Nasal Parainfluen 1 PCR NOT DETECTED 08/21/23 18:23 Nasal Parainfluen 2 PCR NOT DETECTED 08/21/23 18:23 Nasal Parainfluen 3 PCR NOT DETECTED 08/21/23 18:23 Nasal Parainfluen 4 PCR NOT DETECTED 08/21/23 18:23 Nasal RSV (PCR) NOT DETECTED 08/21/23 18:23 Nasal B.pertussis DNA PCR NOT DETECTED 08/21/23 18:23 Nasal C.pneumoniae (PCR) NOT DETECTED 08/21/23 18:23 Melquiades Human Metapneumo PCR NOT DETECTED 08/21/23 18:23 Nasal M.pneumoniae (PCR) NOT DETECTED 08/21/23 18:23 Nasal SARS-CoV-2 (PCR) NOT DETECTED 08/21/23 18:23
[2023-08-23] MEDS: guaiFENesin 600 MG TABLET PO SCH (20:23)
--- NOTE | 2023-08-24 14:13 | PROVIDER PROGRESS NOTE ---
Assessment/Plan - Problem List (1) COPD with exacerbation Assessment/Plan: Continue IV corticosteroids, bronchodilators and long-acting bronchodilators for COPD exacerbation. Patient demonstrates no definite opacity on her chest x-ray. Given her increased leukocytosis prophylactic antibiotics will be continued with ceftriaxone and azithromycin. (2) Acute hypoxemic respiratory failure Assessment/Plan: Acute hypoxemic respiratory failure secondary to COPD exacerbation. She appears to be improving from a respiratory standpoint. Continue to monitor. (3) Alcohol Withdrawal Syndrome Assessment/Plan: Patient currently has a mild withdrawal syndrome. Treatment has been initiated with diazepam 5 mg 3 times a day. Dose can be escalated as needed. If dose is escalated, [facility] protocolfor symptom triggered therapy (4) Hypokalemia Assessment/Plan: Potassium has been replaced continue to monitor as needed. (5) Tobacco Dependence Assessment/Plan: Patient counseled to quit smoking. - Current Meds Current Meds: Current Medications Generic Name Dose Route Start Last Admin Trade Name Freq PRN Reason Stop Dose Admin Albuterol/Ipratropium 3 ml 08/21/23 21:00 08/24/23 11:42 Ipratropium/Albuterol 3 Ml Neb INH 3 ml RTQ4H OCTAVIO Administration Diazepam 5 mg 08/22/23 22:00 08/24/23 13:52 Diazepam 5 Mg Tablet PO 5 mg TID OCTAVIO Administration Docusate Sodium 250 - 500 mg 08/23/23 13:14 08/24/23 08:53 Docusate Sodium 250 Mg Capsule PO 250 mg DAILY OCTAVIO Administration Formoterol Fumarate 20 mcg 08/22/23 07:16 08/24/23 07:07 Formoterol Fumarate Neb 20 Mcg/2 Ml INH 20 mcg RTBID OCTAVIO Administration Guaifenesin 600 mg 08/23/23 21:00 08/24/23 08:53 Guaifenesin 600 Mg Tablet PO 600 mg BID OCTAVIO Administration Ceftriaxone Sodium 1 gm/ 100 mls @ 200 mls/hr 08/22/23 20:00 08/23/23 21:13 Sodium Chloride IV 08/25/23 20:29 Infused Q24H OCTAVIO Infusion Methylprednisolone 40 mg 08/21/23 21:00 08/24/23 08:53 Methylprednisolone Succinate 40 Mg/Ml Vial IVP 40 mg Q6H OCTAVIO Administration Polyethylene Glycol 17 gm 08/23/23 13:14 08/24/23 08:54 Polyethylene Glycol 3350 17 Gm Packet PO 17 gm DAILY OCTAVIO Administration Sodium Chloride 10 ml 08/22/23 01:00 08/24/23 08:54 Sodium Chloride Flush 0.9% 10 Ml Syringe IVP 10 ml 0100,0900,1700 OCTAVIO Administration - Lab Result Fish Bone Diagrams: 08/23/23 05:40 08/23/23 05:40 - Additional Planning My Orders: My Active Orders 08/23/23 21:00 guaiFENesin [Mucinex] 600 mg PO BID Subjective - Subjective Patient Reports: Other (Alert. Reports her breathing has improved but is not at her baseline. She continues to require oxygen for respiratory support. She does not use oxygen at home. She denies chest pain and abdominal pain. No other complaints at this time.) Objective Vital Signs: Vital Signs - 24 hr 08/23/23 08/23/23 08/23/23 15:26 15:27 15:56 Temperature 36.7 C Heart Rate 80 Heart Rate [ Brachial] Heart Rate [ 105 H Monitoring electrodes] Respiratory 20 16 Rate Blood Pressure 108/71 [Right Brachial artery] O2 Saturation 96 If not protocol 2 : Oxygen Flow, liters/minute 08/23/23 08/23/23 08/24/23 19:31 20:49 00:03 Temperature 36.6 C 37.2 C Heart Rate 99 Heart Rate [ 106 H 87 Brachial] Heart Rate [ Monitoring electrodes] Respiratory 24 16 16 Rate Blood Pressure 104/70 114/72 [Right Brachial artery] O2 Saturation 97 92 If not protocol 2 2 : Oxygen Flow, liters/minute 08/24/23 08/24/23 08/24/23 05:00 07:09 07:10 Temperature 36.4 C L Heart Rate 88 Heart Rate [ 67 Brachial] Heart Rate [ Monitoring electrodes] Respiratory 16 22 Rate Blood Pressure 120/71 [Right Brachial artery] O2 Saturation 95 If not protocol 2 2 : Oxygen Flow, liters/minute 08/24/23 08/24/23 08/24/23 09:00 11:43 12:45 Temperature 36.7 C 36.8 C Heart Rate 80 Heart Rate [ 78 74 Brachial] Heart Rate [ Monitoring electrodes] Respiratory 18 20 16 Rate Blood Pressure 120/78 116/71 [Right Brachial artery] O2 Saturation 96 96 If not protocol 2 1 2 : Oxygen Flow, liters/minute Oxygen O2 Source Nasal cannula Oxygen Flow Rate 5 I&O (Last 24 Hrs): Intake and Output Totals x24h 08/22/23 08/23/23 08/24/23 23:59 23:59 23:59 Intake Total 0 1960 480 Balance 2480 1960 480 General: Alert, Oriented x3, No acute distress Neck: No JVD Neuro: Alert, Non Focal Cardiovascular: Other (Positive S1-S2 no extra heart sounds.) Respiratory: Other (Good air exchange in all lung [place] no wheezing no crackles.) Abdomen: Normal bowel sounds, No tenderness Extremities: No cyanosis, No edema Skin: No rashes - Results Results: Laboratory Results WBC 26.3 x10^3/uL (4.8-10.8) H 08/23/23 05:40 RBC 4.79 10^6/uL (4.20-5.40) 08/23/23 05:40 Hgb 14.1 g/dL (12.0-16.0) 08/23/23 05:40 Hct 42.9 % (37.0-47.0) 08/23/23 05:40 MCV 89.6 fL (81.0-99.0) 08/23/23 05:40 MCH 29.4 pg (27.0-31.0) 08/23/23 05:40 MCHC 32.9 g/dL (32.0-36.0) 08/23/23 05:40 RDW 14.0 % (12.0-15.0) 08/23/23 05:40 Plt Count 352 10^3/uL (130-450) 08/23/23 05:40 MPV 9.2 fL (7.9-10.8) 08/23/23 05:40 Neut # (Auto) 20.4 10^3/uL (1.5-6.6) H 08/22/23 03:30 Lymph # (Auto) 1.0 10^3/uL (1.5-3.5) L 08/22/23 03:30 [place] # (Auto) 0.6 10^3/uL (0.0-1.0) 08/22/23 03:30 Eos # (Auto) 0.0 10^3/uL (0.0-0.7) 08/22/23 03:30 Baso # (Auto) 0.1 10^3/uL (0.0-0.1) 08/22/23 03:30 Absolute Nucleated RBC 0.00 x10^3/uL 08/22/23 03:30 Total Counted 100 08/21/23 18:20 Band Neuts % (Manual) Not Reportable 08/22/23 03:30 Reactive Lymphs % (Man) 10 % 08/21/23 18:20 Abnorm Lymph % (Manual) Not Reportable 08/22/23 03:30 Nucleated RBC % 0.0 /100WBC 08/22/23 03:30 Neutrophils # (Manual) Not Reportable 08/22/23 03:30 Lymphocytes # (Manual) Not Reportable 08/22/23 03:30 Monocytes # (Manual) Not Reportable 08/22/23 03:30 Eosinophils # (Manual) Not Reportable 08/22/23 03:30 Basophils # (Manual) Not Reportable 08/22/23 03:30 Differential Comment MANUAL=AUTO DIFF 08/22/23 03:30 Platelet Estimate INCREASED (>450,000) (NORMAL) 08/22/23 03:30 Platelet Morphology 1+ LARGE PLATELETS (NORMAL) 08/22/23 03:30 RBC Morph Micro Appear NORMAL APPEARANCE (NORMAL) 08/22/23 03:30 PT 13.0 secs (9.9-12.6) H 08/22/23 03:30 INR 1.2 (0.8-1.2) 08/22/23 03:30 Bld Gas Analysis Time 0815 08/22/23 08:15 Sample Site RIGHT RADIAL 08/22/23 08:15 ABG pH 7.37 (7.35-7.45) 08/22/23 08:15 ABG pCO2 49 mmHg (34-45) H 08/22/23 08:15 ABG pO2 78 mmHg (80-100) L 08/22/23 08:15 ABG HCO3 27.1 mmol/L (22.0-26.0) H 08/22/23 08:15 ABG Total CO2 28.6 MMOL/L (21.0-29.0) 08/22/23 08:15 ABG O2 Saturation 96 % (94-98) 08/22/23 08:15 ABG Base Excess 1.0 mmol/L (-2.0-3.0) 08/22/23 08:15 Earl Test POSITIVE 08/22/23 08:15 VBG pH 7.352 (7.31-7.41) 08/22/23 08:33 VBG pCO2 47.2 mmHg (41-51) 08/22/23 08:33 VBG pO2 52.7 mmHg (25-47) H 08/22/23 08:33 VBG HCO3 25.6 mmol/L (23-28) 08/22/23 08:33 VBG Total CO2 27.0 mmol/L (24-29) 08/22/23 08:33 VBG O2 Saturation 89.1 % (60-80) H 08/22/23 08:33 VBG Base Excess -0.5 mmol/L (-2 - +2) 08/22/23 08:33 O2 Delivery Device OXYMIZER 08/22/23 08:15 O2 Liters/Min 12.00 LPM 08/22/23 08:15 Sodium 136 mmol/L (135-145) 08/23/23 05:40 Potassium 4.5 mmol/L (3.5-4.5) 08/23/23 05:40 Chloride 100 mmol/L (101-111) L 08/23/23 05:40 Carbon Dioxide 32 mmol/L (21-32) 08/23/23 05:40 Anion Gap 4.0 (6-13) L 08/23/23 05:40 BUN 11 mg/dL (6-20) 08/23/23 05:40 Creatinine 0.4 mg/dL (0.6-1.3) L 08/23/23 05:40 Estimated GFR (MDRD) 176 (>89) 08/23/23 05:40 Glucose 133 mg/dL (74-104) H 08/23/23 05:40 Calcium 9.1 mg/dL (8.5-10.3) 08/23/23 05:40 Phosphorus 2.6 mg/dL (2.5-5.0) 08/23/23 05:40 Magnesium 2.2 mg/dL (1.7-2.3) 08/23/23 05:40 Total Bilirubin 0.3 mg/dL (0.2-1.0) 08/22/23 03:30 AST 20 IU/L (10-42) 08/22/23 03:30 ALT 14 IU/L (10-60) 08/22/23 03:30 Alkaline Phosphatase 107 IU/L (42-121) 08/22/23 03:30 Total Protein 7.4 g/dL (6.4-8.9) 08/22/23 03:30 Albumin 4.3 g/dL (3.2-5.5) 08/22/23 03:30 Globulin 3.1 g/dL (2.1-4.2) 08/22/23 03:30 Albumin/Globulin Ratio 1.4 (1.0-2.2) 08/22/23 03:30 Nasal Adenovirus (PCR) NOT DETECTED 08/21/23 18:23 Nasal B. parapertussis DNA (PCR) NOT DETECTED 08/21/23 18:23 Nasal Coronavir 229E PCR NOT DETECTED 08/21/23 18:23 Nasal Coronavir HKU1 PCR NOT DETECTED 08/21/23 18:23 Nasal Coronavir NL63 PCR NOT DETECTED 08/21/23 18:23 Nasal Coronavir OC43 PCR NOT DETECTED 08/21/23 18:23 Nasal Enterovir/Rhinovir PCR DETECTED A 08/21/23 18:23 Nasal Influenza B PCR NOT DETECTED 08/21/23 18:23 Nasal Influenza A PCR NOT DETECTED 08/21/23 18:23 Nasal Parainfluen 1 PCR NOT DETECTED 08/21/23 18:23 Nasal Parainfluen 2 PCR NOT DETECTED 08/21/23 18:23 Nasal Parainfluen 3 PCR NOT DETECTED 08/21/23 18:23 Nasal Parainfluen 4 PCR NOT DETECTED 08/21/23 18:23 Nasal RSV (PCR) NOT DETECTED 08/21/23 18:23 Nasal B.pertussis DNA PCR NOT DETECTED 08/21/23 18:23 Nasal C.pneumoniae (PCR) NOT DETECTED 08/21/23 18:23 Melquiades Human Metapneumo PCR NOT DETECTED 08/21/23 18:23 Nasal M.pneumoniae (PCR) NOT DETECTED 08/21/23 18:23 Nasal SARS-CoV-2 (PCR) NOT DETECTED 08/21/23 18:23
[2023-08-24] MEDS ORDERED: CYCLOBENZAPRINE 10 MG TABLET PO PRN (17:09)
[2023-08-24] MEDS: SODIUM CHLORIDE FLUSH 0.9% 10 ML SYRINGE IVP PRN (21:08)
[2023-08-25 05:41] LABS: BASOPHILS % (AUTO) 0.3 %; HCT - HEMATOCRIT 44.1 % (37.0-47.0); HGB - HEMOGLOBIN 14.6 g/dL (12.0-16.0); LYMPHOCYTES # (AUTO) 2.4 10^3/uL (1.5-3.5); LYMPHOCYTES % (AUTO) 15.9 %; MEAN CORPUSCULAR HEMOGLOBIN 29.9 pg (27.0-31.0); MEAN CORPUSCULAR HGB CONC 33.1 g/dL (32.0-36.0); MEAN CORPUSCULAR VOLUME 90.2 fL (81.0-99.0); MEAN PLATELET VOLUME 8.9 fL (7.9-10.8); MONOCYTES % (AUTO) 6.8 %; NEUTROPHILS # (AUTO) 11.5 10^3/uL (1.5-6.6); NEUTROPHILS % (AUTO) 75.6 %; PLT - PLATELET COUNT 367 10^3/uL (130-450); RED BLOOD COUNT 4.89 10^6/uL (4.20-5.40); RED CELL DISTRIBUTION WIDTH 13.8 % (12.0-15.0); WHITE BLOOD COUNT 15.3 x10^3/uL (4.8-10.8)
[2023-08-25 05:57] LABS: CALCIUM 9.4 mg/dL (8.5-10.3); CREATININE 0.5 mg/dL (0.6-1.3); MAGNESIUM 1.6 mg/dL (1.7-2.3); PHOSPHORUS 2.8 mg/dL (2.5-5.0); POTASSIUM 4.3 mmol/L (3.5-4.5)
--- NOTE | 2023-08-25 08:06 | DISCHARGE SUMMARY ---
Discharge Summary Admit Date: 08/21/23 Discharge Date: 08/25/23 Discharging Provider: Serge Mims MD Primary Care Provider: Ana SEGURA Code Status: Attempt Resuscitation Condition at Discharge: Stable Discharge Disposition: 01 Home, Self Care Discharge Facility Name: [facility] - DIAGNOSES Admission Diagnoses: 1. Acute hypoxemic respiratory failure 2. COPD exacerbation 3. Hypokalemia 4. Anxiety Discharge Diagnoses with Status of Each Condition: (1) COPD with exacerbation (2) Acute hypoxemic respiratory failure (3) Alcohol Withdrawal Syndrome (4) Hypokalemia (5) Tobacco Dependence - HPI History of Present Illness: Reanna Dior is a 43-year-old woman who presented to the emergency room on August 21, 2023 with complaints of shortness of breath. She has a past medical history significant for COPD and tobacco dependency. She reported a viral illness prior to the onset of her shortness of breath. In the emergency room she was not moving much air on auscultation of her lungs and had diffuse wheezing. Treatment was initiated with IV corticosteroids and bronchodilators. Upon admission to the medical floor, formoterol was added to her regiment for her COPD exacerbation. CBC on admission also revealed a leukocytosis of 26.3 K and treatment was initiated with empiric antibiotics. Blood cultures drawn on admission revealed no growth. She initially required high concentrations of oxygen to maintain an oxygen saturation greater than 90%. Her hospital course was complicated by mild alcohol withdrawal and probable nicotine withdrawal. Over the course of the next several days her respiratory symptoms are improved. Today she no longer requires oxygen and reports her breathing is much improved. She is stable for discharge to home. - HOSPITAL COURSE Hospital Course: Please see history of present illness. - ALLERGIES Allergies/Adverse Reactions: Allergies Allergy/AdvReac Type Severity Reaction Status Date / Time No Known Drug Allergies Allergy Verified 08/21/23 19:24 - MEDICATIONS Home Medications: Ambulatory Orders Medication Instructions Recorded Confirmed ARIPiprazole [Abilify] 5 mg PO DAILY 08/21/23 08/21/23 Albuterol Sulfate [Proair 90 mcg IH Q4HR PRN 08/21/23 08/21/23 Respiclick] Citalopram Hydrobromide 20 mg PO DAILY 08/21/23 08/21/23 [Citalopram HBr] Cyclobenzaprine [Flexeril] 10 mg PO TID PRN 08/21/23 08/21/23 Dextroamphetamine/Amphetamine 25 mg PO DAILY 08/21/23 08/21/23 [Dextroamph-Amphet ER 25 mg Cap] Diclofenac Sodium Dr [Voltaren] 75 mg PO BIDAC PRN 08/21/23 08/21/23 Tiotropium Jerome [Spiriva 1 puffs INH DAILY 08/21/23 08/21/23 Handihaler] Buprenorphine [Sublocade] 100 mg SUBQ UD 08/22/23 08/22/23 Fluticasone Propion/Salmeterol 1 each IH BID #1 each 08/25/23 [Wixela 250-50 Inhub] levoFLOXacin [Levofloxacin] 750 mg PO DAILY #4 tab 08/25/23 - PHYSICAL EXAM AT DISCHARGE General Appearance: positive: No acute distress, Alert Eyes Bilateral: positive: Normal inspection, Conjunctivae nml Neck: positive: Thyroid nml, No JVD, Trachea midline Respiratory: positive: Other (Good air exchange in all lung [place]. Mild intermittent expiratory wheezing. No crackles.) Cardiovascular: positive: Other (Positive S1-S2 no extra heart sounds) Abdomen: positive: Other (Soft nondistended nontender positive bowel sounds) Skin: positive: Skin rash Extremities: positive: Nml appearance, No pedal edema Neurologic/Psychiatric: positive: Oriented x3, Motor nml - LABS Result Diagrams: 08/25/23 05:27 08/25/23 05:27 - QUALITY (Female Hip Fx Only) Was patient sent home on osteoporosis medication?: No - FOLLOW UP Follow Up: Please follow-up with your primary care provider, Ana Bob in 2 to 4 weeks. - TIME SPENT Time Spent in Discharge (Minutes): 31 (Time spent on discharge is 31 minutes coordinating care, counseling patient with regard to her COPD exacerbation, her outpatient medications and to discontinue smoking and discussing prescribed medications with outpatient pharmacy.)
--- NOTE | 2023-08-25 08:06 | Discharge Plan ---
Discharge Plan for SNF / [facility] - Discharge Plan And Transition Orders Problem Reviewed?: Yes Disposition: 01 Home, Self Care Condition: Stable Allergies and Adverse Reactions: Allergies Allergy/AdvReac Type Severity Reaction Status Date / Time No Known Drug Allergies Allergy Verified 08/21/23 19:24 Health Concerns: Reanna Dior is a 43-year-old woman who presented to the emergency room on August 21, 2023 with complaints of shortness of breath. She has a past medical history significant for COPD and tobacco dependency. She reported a viral illness prior to the onset of her shortness of breath. In the emergency room she was not moving much air on auscultation of her lungs and had diffuse wheezing. Treatment was initiated with IV corticosteroids and bronchodilators. Upon admission to the medical floor, formoterol was added to her regiment for her COPD exacerbation. CBC on admission also revealed a leukocytosis of 26.3 K and treatment was initiated with empiric antibiotics. Blood cultures drawn on admission revealed no growth. She initially required high concentrations of oxygen to maintain an oxygen saturation greater than 90%. Her hospital course was complicated by mild alcohol withdrawal and probable nicotine withdrawal. Over the course of the next several days her respiratory symptoms are improved. Today she no longer requires oxygen and reports her breathing is much improved. She is stable for discharge to home. Plan of Treatment: 1. Take all medications as prescribed. 2. Please do not smoke again. 3. Please follow-up with your primary care provider. Care Goals: Goal of care is to return to baseline and good quality of life. Assessment: (1) COPD with exacerbation Assessment/Plan: Resolving.Continue treatment with Spiriva and inhaled corticosteroid with a long-acting beta agonist and albuterol as needed. (2) Acute hypoxemic respiratory failure Assessment/Plan: Resolved. (3) Alcohol Withdrawal Syndrome Reanna was treated with 5 mg of Valium 3 times a day during her hospitalization for mild alcohol withdrawal. Her symptoms were well-controlled through her hospitalization. (4) Hypokalemia Resolved (5) Tobacco Dependence Assessment/Plan: Patient counseled to quit smoking. - SNF / [facility] Transition Orders Medicare Certification Statement: I certify that [facility] shelter care is medically necessary on a continuing basis for any of the conditions for which she/he is receiving care during hospitalization. Notify PCP of admission and forward orders to primary provider for signature. Other Notification Orders: Call PCP immediately if patient develops dyspnea, chest pain/tightness or edema. Additional Bowel Program Orders: If no BM after 2 days, nurse may give M.O.M. 30ml PO PRN and/or ducolax Supp 1 HI and/or WHITNEY 250mg P.O., and/or senna 1-2 tabs PO. On day 3 nurse may give repeat above order until residents constipation is resolved. Medication Orders: PLEASE REFER TO THE DISCHARGE MEDICATION LIST.
[2023-08-25 08:17] VITALS: BP 131/80; O2SAT 95
--- NOTE | 2023-08-25 08:24 | Discharge Plan ---
Discharge Plan Problem Reviewed?: Yes Disposition: 01 Home, Self Care Prescriptions: levoFLOXacin [Levofloxacin] 750 mg PO DAILY #4 tab Fluticasone Propion/Salmeterol [Wixela 250-50 Inhub] 1 each IH BID #1 each Diet: Regular Activity Restrictions: Activity as Tolerated Shower Restrictions: No Driving Restrictions: No Weight Bearing: Full Weight Instruction Topics: Quit Smoking Plan, Withdrawal Smoking [facility] Concerns: Reanna Dior is a 43-year-old woman who presented to the emergency room on August 21, 2023 with complaints of shortness of breath. She has a past medical history significant for COPD and tobacco dependency. She reported a viral illness prior to the onset of her shortness of breath. In the emergency room she was not moving much air on auscultation of her lungs and had diffuse wheezing. Treatment was initiated with IV corticosteroids and bronchodilators. Upon admission to the medical floor, formoterol was added to her regiment for her COPD exacerbation. CBC on admission also revealed a leukocytosis of 26.3 K and treatment was initiated with empiric antibiotics. Blood cultures drawn on admission revealed no growth. She initially required high concentrations of oxygen to maintain an oxygen saturation greater than 90%. Her hospital course was complicated by mild alcohol withdrawal and probable nicotine withdrawal. Over the course of the next several days her respiratory symptoms are improved. Today she no longer requires oxygen and reports her breathing is much improved. She is stable for discharge to home. Plan of Treatment: 1. Take all medications as prescribed. 2. Please do not smoke again. 3. Please follow-up with your primary care provider. Care Goals: Goal of care is to return to baseline and good quality of life. Assessment: (1) COPD with exacerbation Assessment/Plan: Resolving.Continue treatment with Spiriva and inhaled corticosteroid with a long-acting beta agonist and albuterol as needed. (2) Acute hypoxemic respiratory failure Assessment/Plan: Resolved. (3) Alcohol Withdrawal Syndrome Reanna was treated with 5 mg of Valium 3 times a day during her hospitalization for mild alcohol withdrawal. Her symptoms were well-controlled through her hospitalization. (4) Hypokalemia Resolved (5) Tobacco Dependence Assessment/Plan: Patient counseled to quit smoking. No Smoking: If you smoke, Please STOP! Call for help. Follow-up with: Ana Bob PA-C [Primary Care Provider] -
[2023-08-25] MEDS: CITALOPRAM 10 MG TABLET PO SCH (09:01)
[2023-08-25] MEDS: AMPHETAMINE PO SCH (09:02)
[2023-08-25] MEDS: DEXTROAMPHETAMINE PO SCH (09:02)
[2023-08-25] MEDS: ARIPiprazole 5 MG TABLET PO SCH (09:28)
== END 2023-08-25 10:00 | disposition home or self-care (01) | DRG 189 ==
LOC: EDUNIT# → SUPCPDRO 18:09 → ED 18:09 → MS2 20:03
PROVIDERS: ADMIT Internal Medicine; ATTEND Internal Medicine
DX: J96.01 Acute respiratory failure with hypoxia (principal); J44.1 Chronic obstructive pulmonary disease with (acute) exacerbation; F10.239 Alcohol dependence with withdrawal, unspecified; F17.293 Nicotine dependence, other tobacco product, with withdrawal; E87.6 Hypokalemia; D72.829 Elevated white blood cell count, unspecified; F32.A Depression, unspecified; F41.9 Anxiety disorder, unspecified; R00.0 Tachycardia, unspecified; Z20.822 Contact with and (suspected) exposure to COVID-19; Z79.899 Other long term (current) drug therapy
CPT/HCPCS: 36415; 36600; 71045; 80048; 80053; 82803; 83735; 84100; 85025; 85027; 85610; 87040; 87633; 93005; 94640; 96365; 96372; 96375; 99285; 99291; 99406; A9270; J2060

== ENCOUNTER 2023-11-29 11:33 | Outpatient (CLI) | payer MEDICAID ==
[2023-11-29 18:04] LABS: BASOPHILS # (AUTO) 0.1 10^3/uL (0.0-0.1); EOSINOPHILS # (AUTO) 0.6 10^3/uL (0.0-0.7); EOSINOPHILS % (AUTO) 4.9 %; HCT - HEMATOCRIT 38.4 % (37.0-47.0); HGB - HEMOGLOBIN 12.5 g/dL (12.0-16.0); LYMPHOCYTES # (AUTO) 3.2 10^3/uL (1.5-3.5); LYMPHOCYTES % (AUTO) 27.6 %; MEAN CORPUSCULAR HEMOGLOBIN 30.3 pg (27.0-31.0); MEAN CORPUSCULAR HGB CONC 32.6 g/dL (32.0-36.0); MEAN CORPUSCULAR VOLUME 93.2 fL (81.0-99.0); MONOCYTES # (AUTO) 0.9 10^3/uL (0.0-1.0); MONOCYTES % (AUTO) 7.8 %; NEUTROPHILS # (AUTO) 6.8 10^3/uL (1.5-6.6); NEUTROPHILS % (AUTO) 58.3 %; RED BLOOD COUNT 4.12 10^6/uL (4.20-5.40); RED CELL DISTRIBUTION WIDTH 15.6 % (12.0-15.0); WHITE BLOOD COUNT 11.6 x10^3/uL (4.8-10.8)
[2023-11-29 22:47] LABS: PLATELET ESTIMATE, MANUAL DECREASED (<130,000) (NORMAL); PLATELET MORPHOLOGY NORMAL APPEARANCE (NORMAL); PLT - PLATELET COUNT 16 10^3/uL (130-450)
== END 2023-11-29 11:34 | disposition home or self-care (01) ==
LOC: LAB.N 11:33
PROVIDERS: ATTEND Internal Medicine
DX: D69.3 Immune thrombocytopenic purpura (principal)
CPT/HCPCS: 36415; 85025

== ENCOUNTER 2023-12-03 12:03 | Outpatient (CLI) | payer MEDICAID ==
[2023-12-03 18:35] LABS: BASOPHILS # (AUTO) 0.1 10^3/uL (0.0-0.1); BASOPHILS % (AUTO) 0.6 %; EOSINOPHILS # (AUTO) 0.1 10^3/uL (0.0-0.7); EOSINOPHILS % (AUTO) 0.4 %; HCT - HEMATOCRIT 38.3 % (37.0-47.0); HGB - HEMOGLOBIN 12.4 g/dL (12.0-16.0); LYMPHOCYTES # (AUTO) 4.9 10^3/uL (1.5-3.5); LYMPHOCYTES % (AUTO) 33.3 %; MEAN CORPUSCULAR HEMOGLOBIN 30.7 pg (27.0-31.0); MEAN CORPUSCULAR HGB CONC 32.4 g/dL (32.0-36.0); MEAN CORPUSCULAR VOLUME 94.8 fL (81.0-99.0); MONOCYTES # (AUTO) 1.1 10^3/uL (0.0-1.0); MONOCYTES % (AUTO) 7.4 %; NEUTROPHILS # (AUTO) 8.6 10^3/uL (1.5-6.6); PLT - PLATELET COUNT 158 10^3/uL (130-450); RED BLOOD COUNT 4.04 10^6/uL (4.20-5.40); RED CELL DISTRIBUTION WIDTH 16.1 % (12.0-15.0); WHITE BLOOD COUNT 14.8 x10^3/uL (4.8-10.8)
== END 2023-12-03 12:04 | disposition home or self-care (01) ==
LOC: LAB.N 12:03
PROVIDERS: ATTEND Internal Medicine
DX: D69.3 Immune thrombocytopenic purpura (principal); Z79.899 Other long term (current) drug therapy
CPT/HCPCS: 36415; 85025

== ENCOUNTER 2023-12-07 10:13 | Outpatient (CLI) | payer MEDICAID ==
[2023-12-07 18:31] LABS: BASOPHILS % (AUTO) 0.4 %; EOSINOPHILS % (AUTO) 0.6 %; HGB - HEMOGLOBIN 13.2 g/dL (12.0-16.0); LYMPHOCYTES % (AUTO) 34.2 %; MEAN CORPUSCULAR HEMOGLOBIN 31.3 pg (27.0-31.0); MEAN CORPUSCULAR VOLUME 94.8 fL (81.0-99.0); MEAN PLATELET VOLUME 9.4 fL (7.9-10.8); MONOCYTES % (AUTO) 8.2 %; PLT - PLATELET COUNT 430 10^3/uL (130-450); RED BLOOD COUNT 4.22 10^6/uL (4.20-5.40); RED CELL DISTRIBUTION WIDTH 15.4 % (12.0-15.0)
[2023-12-07 18:36] LABS: ABNORMAL LYMPHS % (MANUAL) 0 %; BAND NEUTROPHILS % (MANUAL) 0 %
[2023-12-07 19:17] LABS: DIFFERENTIAL COMMENT MANUAL DIFFERENTIAL; LYMPHOCYTES # (MANUAL) 7.3 10^3/uL (1.5-3.5); LYMPHOCYTES % (MANUAL) 38 %; MONOCYTES # (MANUAL) 1.5 10^3/uL (0.0-1.0); NEUTROPHILS # (MANUAL) 8.2 10^3/uL (1.5-6.6); PLATELET ESTIMATE, MANUAL NORMAL (130-450,000) (NORMAL); PLATELET MORPHOLOGY NORMAL APPEARANCE (NORMAL); RBC MORPHOLOGY (MULTIPLE) NORMAL APPEARANCE (NORMAL); REACTIVE LYMPHS % (MANUAL) 5 %
== END 2023-12-07 10:14 | disposition home or self-care (01) ==
LOC: LAB.N 10:13
PROVIDERS: ATTEND Internal Medicine
DX: D69.3 Immune thrombocytopenic purpura (principal)
CPT/HCPCS: 36415; 85025

== ENCOUNTER 2023-12-07 10:30 | Outpatient (CLI) | payer MEDICAID ==
--- NOTE | 2023-12-08 13:42 | Mammography Report ---
BILATERAL DIGITAL SCREENING MAMMOGRAM 3D/2D: 12/07/2023 CLINICAL: Baseline exam. Routine screening. No prior exams were available for comparison. Both breasts are heterogeneously dense, which may obscure small masses (category c / 51-75% glandular tissue). No significant masses, calcifications, or other findings are seen in either breast. IMPRESSION: NEGATIVE There is no mammographic evidence of malignancy. A 1 year screening mammogram is recommended. Based on the Tyrer Cuzick model (a risk assessment model) the patient's lifetime risk is 12.7% and he r 10 year risk is 1.7%. According to the ACR, ACS, and NCCN guidelines, an annual breast MRI exam jossie ng with mammogram is recommended if the patient's lifetime risk is 20% or greater. This exam was interpreted at Station ID: [id number]. NOTE: For mammograms, a report in lay terms will be sent to the patient. Approximately 15% of breast malignancies will not be visualized mammographically. In the management of a palpable breast mass, a negative mammogram must not discourage biopsy of a clinically suspicious lesion. Electronically Signed By: Yanna Granados M.D., Ph.D. eb/magdalena:12/07/2023 16:09:23 letter sent: No_Letter ACR BI-RADS Category 1: Negative [id number] PARENCHYMAL PATTERN: (D) - The breast(s) demonstrate(s) heterogeneously dense fibroglandular parenchy ma. BI-RADS CATEGORY: (1) - 1 RECOMMENDATION: (ANNUAL) - Recommend routine annual screening mammography. [id number] 1 year screening LATERALITY: (B)
== END 2023-12-07 10:31 | disposition home or self-care (01) ==
LOC: DI.N 10:30
PROVIDERS: ATTEND Nurse Practitioner
DX: Z12.31 Encounter for screening mammogram for malignant neoplasm of breast (principal); R92.333 Mammographic heterogeneous density, bilateral breasts

== ENCOUNTER 2023-12-10 13:32 | Outpatient (CLI) | payer MEDICAID ==
[2023-12-10 18:02] LABS: BASOPHILS % (AUTO) 0.3 %; EOSINOPHILS % (AUTO) 0.4 %; HCT - HEMATOCRIT 42.2 % (37.0-47.0); LYMPHOCYTES % (AUTO) 30.9 %; MEAN CORPUSCULAR HGB CONC 33.2 g/dL (32.0-36.0); MEAN CORPUSCULAR VOLUME 93.6 fL (81.0-99.0); MEAN PLATELET VOLUME 8.9 fL (7.9-10.8); MONOCYTES % (AUTO) 8.5 %; NEUTROPHILS % (AUTO) 59.4 %; PLT - PLATELET COUNT 544 10^3/uL (130-450); RED BLOOD COUNT 4.51 10^6/uL (4.20-5.40); RED CELL DISTRIBUTION WIDTH 14.8 % (12.0-15.0); WHITE BLOOD COUNT 17.8 x10^3/uL (4.8-10.8)
[2023-12-10 18:11] LABS: ABNORMAL LYMPHS % (MANUAL) 0 %
[2023-12-10 18:55] LABS: BAND NEUTROPHILS % (MANUAL) 1 %; BASOPHILS # (MANUAL) 0.2 10^3/uL (0-0.1); BASOPHILS % (MANUAL) 1 %; EOSINOPHILS # (MANUAL) 0.2 10^3/uL (0-0.7); LYMPHOCYTES # (MANUAL) 5.5 10^3/uL (1.5-3.5); LYMPHOCYTES % (MANUAL) 16 %; MONOCYTES # (MANUAL) 1.1 10^3/uL (0.0-1.0); NEUTROPHILS # (MANUAL) 10.9 10^3/uL (1.5-6.6); REACTIVE LYMPHS % (MANUAL) 15 %
[2023-12-10 18:56] LABS: DIFFERENTIAL COMMENT MANUAL DIFFERENTIAL; PLATELET ESTIMATE, MANUAL INCREASED (>450,000) (NORMAL); PLATELET MORPHOLOGY NORMAL APPEARANCE (NORMAL); RBC MORPHOLOGY (MULTIPLE) NORMAL APPEARANCE (NORMAL)
== END 2023-12-10 13:33 | disposition home or self-care (01) ==
LOC: LAB.N 13:32
PROVIDERS: ATTEND Internal Medicine
DX: D69.3 Immune thrombocytopenic purpura (principal)
CPT/HCPCS: 36415; 85025

== ENCOUNTER 2023-12-17 12:55 | Outpatient (CLI) | payer MEDICAID ==
[2023-12-17 19:01] LABS: BASOPHILS % (AUTO) 0.1 %; EOSINOPHILS % (AUTO) 0.1 %; HCT - HEMATOCRIT 42.2 % (37.0-47.0); HGB - HEMOGLOBIN 13.6 g/dL (12.0-16.0); LYMPHOCYTES # (AUTO) 1.4 10^3/uL (1.5-3.5); LYMPHOCYTES % (AUTO) 9.2 %; MEAN CORPUSCULAR HEMOGLOBIN 30.3 pg (27.0-31.0); MEAN CORPUSCULAR HGB CONC 32.2 g/dL (32.0-36.0); MEAN PLATELET VOLUME 9.2 fL (7.9-10.8); MONOCYTES # (AUTO) 0.4 10^3/uL (0.0-1.0); MONOCYTES % (AUTO) 2.7 %; NEUTROPHILS # (AUTO) 12.8 10^3/uL (1.5-6.6); NEUTROPHILS % (AUTO) 86.9 %; PLT - PLATELET COUNT 460 10^3/uL (130-450); RED BLOOD COUNT 4.49 10^6/uL (4.20-5.40); RED CELL DISTRIBUTION WIDTH 14.3 % (12.0-15.0); WHITE BLOOD COUNT 14.7 x10^3/uL (4.8-10.8)
== END 2023-12-17 12:56 | disposition home or self-care (01) ==
LOC: LAB.N 12:55
PROVIDERS: ATTEND Internal Medicine
DX: D69.3 Immune thrombocytopenic purpura (principal)
CPT/HCPCS: 36415; 85025

== ENCOUNTER 2023-12-24 11:53 | Outpatient (CLI) | payer MEDICAID ==
[2023-12-24 17:48] LABS: BASOPHILS # (AUTO) 0.1 10^3/uL (0.0-0.1); BASOPHILS % (AUTO) 0.4 %; EOSINOPHILS # (AUTO) 0.1 10^3/uL (0.0-0.7); EOSINOPHILS % (AUTO) 0.9 %; HGB - HEMOGLOBIN 14.1 g/dL (12.0-16.0); LYMPHOCYTES # (AUTO) 4.8 10^3/uL (1.5-3.5); LYMPHOCYTES % (AUTO) 29.6 %; MEAN CORPUSCULAR HEMOGLOBIN 30.7 pg (27.0-31.0); MEAN CORPUSCULAR HGB CONC 32.8 g/dL (32.0-36.0); MEAN CORPUSCULAR VOLUME 93.5 fL (81.0-99.0); MEAN PLATELET VOLUME 9.2 fL (7.9-10.8); MONOCYTES % (AUTO) 6.4 %; NEUTROPHILS # (AUTO) 10.1 10^3/uL (1.5-6.6); NEUTROPHILS % (AUTO) 62.1 %; PLT - PLATELET COUNT 297 10^3/uL (130-450); RED CELL DISTRIBUTION WIDTH 14.1 % (12.0-15.0); WHITE BLOOD COUNT 16.3 x10^3/uL (4.8-10.8)
== END 2023-12-24 11:54 | disposition home or self-care (01) ==
LOC: LAB.N 11:53
PROVIDERS: ATTEND Internal Medicine
DX: D69.3 Immune thrombocytopenic purpura (principal)
CPT/HCPCS: 36415; 85025

== ENCOUNTER 2024-03-31 07:51 | Observation (INO) ==
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
[2024-03-31 08:16] LABS: BASOPHILS # (AUTO) 0.1 10^3/uL (0.0-0.1); BASOPHILS % (AUTO) 0.9 %; EOSINOPHILS # (AUTO) 0.8 10^3/uL (0.0-0.7); EOSINOPHILS % (AUTO) 5.2 %; HCT - HEMATOCRIT 51.2 % (37.0-47.0); HGB - HEMOGLOBIN 15.7 g/dL (12.0-16.0); LYMPHOCYTES # (AUTO) 7.7 10^3/uL (1.5-3.5); LYMPHOCYTES % (AUTO) 52.2 %; MEAN CORPUSCULAR HEMOGLOBIN 28.7 pg (27.0-31.0); MEAN CORPUSCULAR HGB CONC 30.7 g/dL (32.0-36.0); MEAN CORPUSCULAR VOLUME 93.6 fL (81.0-99.0); MEAN PLATELET VOLUME 9.9 fL (7.9-10.8); MONOCYTES % (AUTO) 6.9 %; NEUTROPHILS # (AUTO) 4.8 10^3/uL (1.5-6.6); NEUTROPHILS % (AUTO) 32.6 %; PLT - PLATELET COUNT 393 10^3/uL (130-450); RED BLOOD COUNT 5.47 10^6/uL (4.20-5.40); RED CELL DISTRIBUTION WIDTH 13.6 % (12.0-15.0); WHITE BLOOD COUNT 14.7 x10^3/uL (4.8-10.8)
[2024-03-31 08:17] LABS: SLIDE REVIEW? Indicated
[2024-03-31 08:32] LABS: BILIRUBIN,TOTAL 0.4 mg/dL (0.2-1.0); CALCIUM 8.7 mg/dL (8.5-10.3); MAGNESIUM 2.4 mg/dL (1.7-2.3); POTASSIUM 4.1 mmol/L (3.5-4.5)
[2024-03-31 08:40] LABS: ALBUMIN/GLOBULIN RATIO 1.4 (1.0-2.2); CREATININE 0.8 mg/dL (0.6-1.3); TOTAL PROTEIN 6.9 g/dL (6.4-8.9)
[2024-03-31 08:43] LABS: PLATELET ESTIMATE, MANUAL NORMAL (130-450,000) (NORMAL); PLATELET MORPHOLOGY NORMAL APPEARANCE (NORMAL); RBC MORPHOLOGY (MULTIPLE) NORMAL APPEARANCE (NORMAL)
[2024-03-31 08:50] LABS: BILIRUBIN,URINE NEGATIVE (NEGATIVE); GLUCOSE, URINE (UA) >=1000 mg/dL (NEGATIVE); KETONES,URINE (UA) NEGATIVE (NEGATIVE); LEUKOCYTE ESTERASE, URINE NEGATIVE (NEGATIVE); NITRITE,URINE NEGATIVE (NEGATIVE); OCCULT BLOOD,URINE MODERATE (NEGATIVE); PROTEIN,URINE 100 mg/dL (NEGATIVE); UROBILINOGEN,URINE 0.2 (NORMAL) E.U./dL (NORMAL)
[2024-03-31 08:53] LABS: CLARITY,URINE SL. CLOUDY (CLEAR); HCG UR QUAL NEGATIVE
[2024-03-31] MEDS: MIDAZOLAM 2 MG/2 ML VIAL IVP STA (08:55)
[2024-03-31 08:58] LABS: BACTERIA,URINE Few /HPF (None Seen); RBC,URINE 0-5 /HPF (0-5); SQUAMOUS EPITHELIAL CELL,UR MANY Squamous (<= Few); WBC,URINE 0-3 /HPF (0-5)
[2024-03-31] MEDS: SODIUM CHLORIDE 0.9% 1,000 ML IV STA (08:58)
--- NOTE | 2024-03-31 08:58 | CT Report ---
PROCEDURE: CT Head WO INDICATIONS: AMS TECHNIQUE: Noncontrast 4.5 mm thick angled axial sections acquired from the foramen magnum to the vertex. For r adiation dose reduction, the following was used: automated exposure control, adjustment of mA and/or kV according to patient size. COMPARISON: None. FINDINGS: Image quality: Excellent. CSF spaces: Basal cisterns are patent. No extra-axial fluid collections. Ventricles are normal in size and shape. Brain: No midline shift. No intracranial masses or hemorrhage. Arana-white matter interface is norm al. Skull and face: Calvarium and visualized facial bones are intact, without suspicious lesions. Sinuses: Visualized sinuses and mastoids are clear. IMPRESSION: No acute intracranial pathology. Reviewed by: Jason Dominguez MD on 03/31/2024 8:57 AM [facility] Approved by: Jasno Dominguez MD on 03/31/2024 8:57 AM [facility] Station ID: [id number]
[2024-03-31 09:05] LABS: AMPHETAMINE SCREEN,URINE POSITIVE (NEGATIVE); BARBITURATE SCREEN,UR NEGATIVE (NEGATIVE); BENZODIAZEPINES SCREEN, URINE NEGATIVE (NEGATIVE); BUPRENORPHINE SCREEN, URINE POSITIVE (NEGATIVE); COCAINE SCREEN URINE NEGATIVE (NEGATIVE); METHADONE SCREEN, URINE NEGATIVE (NEGATIVE); METHAMPHETAMINES SCREEN, URINE NEGATIVE (NEGATIVE); OPIATE SCREEN, URINE NEGATIVE (NEGATIVE); OXYCODONE SCREEN, URINE NEGATIVE (NEGATIVE); THC CANNABINOID SCREEN, URINE POSITIVE (NEGATIVE); TRICYCLIC ANTIDEPRESSANT,URINE NEGATIVE (NEGATIVE)
[2024-03-31 09:06] LABS: ABG BASE EXCESS -9.1 mmol/L (-2.0-3.0); ABG MODE OF VENTILATION ASSIST/CONTROL; ABG OXYGEN SATURATION 100 % (94-98); ABG PCO2 55 mmHg (34-45); ABG TCO2 21.7 MMOL/L (21.0-29.0); ALLEN TEST POSITIVE
[2024-03-31 09:07] LABS: ABG RESPIRATORY RATE 16 b/min
[2024-03-31 09:08] LABS: ABG PH 7.18 (7.35-7.45)
[2024-03-31 09:09] LABS: ABG PO2 375 mmHg (80-100)
[2024-03-31] MEDS: MIDAZOLAM 10 MG/2 ML VIAL IVP STA (09:09)
[2024-03-31] MEDS: cefTRIAXone 1 GM in SODIUM CHLORIDE 0.9% MINIBAG 100 ML IV STA (09:15)
--- NOTE | 2024-03-31 09:26 | XRAY Report ---
PROCEDURE: XR Chest 1V INDICATIONS: chest pain TECHNIQUE: One view of the chest was acquired. COMPARISON: None. FINDINGS: Surgical changes and devices: ET tube tip 4.0 cm above the lillie. Lungs and pleura: No pleural effusions or pneumothorax. No consolidation. Mediastinum: Mediastinal contours appear normal. Heart size is normal. Bones and chest wall: No suspicious bony lesions. Overlying soft tissues appear unremarkable. IMPRESSION: No acute cardiopulmonary process. ET tube with tip 4.0 cm above the lillie. Reviewed by: Doris Palmer MD, PhD on 03/31/2024 9:25 AM [facility] Approved by: Doris Palmer MD, PhD on 03/31/2024 9:25 AM [facility] Station ID: [id number]
[2024-03-31] MEDS ORDERED: ALBUTEROL NEB 2.5 MG/3 ML INH ONE (09:36)
[2024-03-31] MEDS ORDERED: IPRATROPIUM/ALBUTEROL 3 ML NEB INH ONE (09:36)
[2024-03-31] MEDS: ALBUTEROL NEB 2.5 MG/3 ML INH STA (09:37)
[2024-03-31] MEDS: IPRATROPIUM/ALBUTEROL 3 ML NEB INH STA (09:38)
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
[2024-03-31] MEDS ORDERED: ONDANSETRON ODT 4 MG TABLET TL PRN (12:03)
[2024-03-31] MEDS ORDERED: ONDANSETRON 4 MG/2 ML VIAL IVP PRN (12:03)
[2024-03-31] MEDS ORDERED: oxyCODONE 5 MG TABLET PO PRN (12:03)
[2024-03-31] MEDS ORDERED: ALBUTEROL NEB 2.5 MG/3 ML INH PRN (12:03)
[2024-03-31] MEDS ORDERED: ACETAMINOPHEN 325 MG TABLET PO PRN (12:03)
[2024-03-31] MEDS ORDERED: SODIUM CHLORIDE FLUSH 0.9% 10 ML SYRINGE IVP PRN (12:03)
[2024-03-31] MEDS: BUPRENORPHINE/NALOXONE 8-2 MG TAB SL SCH (13:02)
[2024-03-31] MEDS: methylPREDNISolone SUCCINATE 40 MG/ML VIAL IVP SCH (13:02)
[2024-03-31] MEDS: ENOXAPARIN 40 MG/0.4 ML SYRINGE SUBQ SCH (13:02)
[2024-03-31] MEDS: IPRATROPIUM/ALBUTEROL 3 ML NEB INH SCH (13:59)
[2024-03-31 14:11] LABS: BASOPHILS % (AUTO) 0.1 %; EOSINOPHILS % (AUTO) 0.1 %; HCT - HEMATOCRIT 47.8 % (37.0-47.0); HGB - HEMOGLOBIN 15.6 g/dL (12.0-16.0); LYMPHOCYTES # (AUTO) 0.5 10^3/uL (1.5-3.5); LYMPHOCYTES % (AUTO) 3.3 %; MEAN CORPUSCULAR HEMOGLOBIN 28.8 pg (27.0-31.0); MEAN CORPUSCULAR HGB CONC 32.6 g/dL (32.0-36.0); MEAN CORPUSCULAR VOLUME 88.2 fL (81.0-99.0); MEAN PLATELET VOLUME 9.3 fL (7.9-10.8); MONOCYTES # (AUTO) 0.5 10^3/uL (0.0-1.0); MONOCYTES % (AUTO) 2.9 %; NEUTROPHILS # (AUTO) 14.6 10^3/uL (1.5-6.6); NEUTROPHILS % (AUTO) 92.9 %; PLT - PLATELET COUNT 340 10^3/uL (130-450); RED BLOOD COUNT 5.42 10^6/uL (4.20-5.40); WHITE BLOOD COUNT 15.7 x10^3/uL (4.8-10.8)
[2024-03-31] MEDS ORDERED: iohexoL-300 100 ML VIAL ONE (14:17)
[2024-03-31 14:25] LABS: CALCIUM 8.6 mg/dL (8.5-10.3); CREATININE 0.6 mg/dL (0.6-1.3); POTASSIUM 3.6 mmol/L (3.5-4.5)
[2024-03-31] MEDS: SODIUM CHLORIDE 0.9% 1,000 ML IV ONE (14:39)
[2024-03-31 15:25] LABS: BILIRUBIN,URINE NEGATIVE (NEGATIVE); GLUCOSE, URINE (UA) NEGATIVE (NEGATIVE); KETONES,URINE (UA) 40 mg/dL (NEGATIVE); LEUKOCYTE ESTERASE, URINE SMALL (NEGATIVE); NITRITE,URINE NEGATIVE (NEGATIVE); OCCULT BLOOD,URINE LARGE (NEGATIVE); PH,URINE 5.5 PH (5.0-7.5); PROTEIN,URINE TRACE mg/dL (NEGATIVE); UROBILINOGEN,URINE 0.2 (NORMAL) E.U./dL (NORMAL)
[2024-03-31 15:29] LABS: CLARITY,URINE CLOUDY (CLEAR)
[2024-03-31 15:49] LABS: ESTIMATED AVERAGE GLUCOSE 114 mg/dL (70-100); HEMOGLOBIN A1c% 5.6 % (4.27-6.07)
[2024-03-31 16:11] LABS: AMORPHOUS SEDIMENT,UR Marked /LPF; BACTERIA,URINE Rare /HPF (None Seen); CRYSTALS,URINE >50 Ammonium Urate /LPF; SQUAMOUS EPITHELIAL CELL,UR NONE SEEN (<= Few); WBC,URINE 0-3 /HPF (0-5)
[2024-03-31] MEDS: SODIUM CHLORIDE 0.9% 1,000 ML IV SCH (17:46)
[2024-03-31] MEDS: SODIUM CHLORIDE FLUSH 0.9% 10 ML SYRINGE IVP SCH (17:46)
[2024-03-31] MEDS ORDERED: DIATRIZOATE MEGLU/DIATRIZO SOD 30 ML BOTTLE PO ONE (17:57)
[2024-03-31] MEDS: ethyl alcohoL 62% SWAB AMPULE NAS SCH (20:49)
[2024-04-01 05:59] LABS: BASOPHILS % (AUTO) 0.1 %; EOSINOPHILS % (AUTO) 0.1 %; HGB - HEMOGLOBIN 14.1 g/dL (12.0-16.0); LYMPHOCYTES # (AUTO) 1.2 10^3/uL (1.5-3.5); LYMPHOCYTES % (AUTO) 7.2 %; MEAN CORPUSCULAR HEMOGLOBIN 29.3 pg (27.0-31.0); MEAN CORPUSCULAR HGB CONC 33.6 g/dL (32.0-36.0); MEAN CORPUSCULAR VOLUME 87.3 fL (81.0-99.0); MEAN PLATELET VOLUME 9.5 fL (7.9-10.8); MONOCYTES % (AUTO) 6.1 %; NEUTROPHILS # (AUTO) 14.7 10^3/uL (1.5-6.6); PLT - PLATELET COUNT 285 10^3/uL (130-450); RED BLOOD COUNT 4.81 10^6/uL (4.20-5.40); RED CELL DISTRIBUTION WIDTH 14.3 % (12.0-15.0); WHITE BLOOD COUNT 17.1 x10^3/uL (4.8-10.8)
[2024-04-01 06:10] LABS: CALCIUM, IONIZED 1.08 mmol/L (1.15-1.33); VBG PH 7.382 (7.31-7.41)
[2024-04-01 06:23] LABS: CALCIUM 8.4 mg/dL (8.5-10.3); CREATININE 0.5 mg/dL (0.6-1.3); POTASSIUM 4.1 mmol/L (3.5-4.5)
[2024-04-01] MEDS: iohexoL-300 100 ML VIAL IVP ONE (06:41)
[2024-04-01] MEDS: DIATRIZOATE MEGLU/DIATRIZO SOD 30 ML BOTTLE PO ONE (06:41)
[2024-04-01 06:42] LABS: MAGNESIUM 1.9 mg/dL (1.7-2.3); PHOSPHORUS 2.9 mg/dL (2.5-5.0)
[2024-04-01] MEDS: CALCIUM CARBONATE CHEW 500 MG TABLET PO SCH (07:02)
[2024-04-01 08:13] VITALS: TEMP 97.9
[2024-04-01] MEDS: cefTRIAXone 1 GM VIAL IVP SCH (09:22)
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
--- NOTE | 2024-04-01 13:23 | PHARMACY PROGRESS NOTE ---
Best Possible Medication History Admit Date and Time: 03/31/24 [id number] Home Medications Medication Instructions Recorded Confirmed Type Dextroamphetamine/Amphetamine 25 mg PO DAILY 08/21/23 04/01/24 History [Dextroamph-Amphet Er 25 Mg Cap] aripiprazole 5 mg tablet 5 mg PO DAILY 08/21/23 04/01/24 History albuterol sulfate 90 mcg/actuation 2 puff inhalation Q4H PRN 03/02/24 04/01/24 Rx aerosol inhaler (Ventolin HFA) shortness of breath or wheezing #8.5 grams acyclovir 400 mg tablet 400 mg PO BID PRN outbreak 03/29/24 04/01/24 History buprenorphine 8 mg-naloxone 2 mg 1 film buccal BID 03/29/24 04/01/24 History sublingual film (Suboxone) duloxetine 30 mg capsule,delayed 60 mg (2 x 30 mg) PO QDAY #90 caps 03/29/24 04/01/24 Rx release fluticasone 250 mcg-salmeterol 50 1 ea inhalation BID COPD #60 ea 03/29/24 04/01/24 Rx mcg/dose blistr powdr for inhalation (Wixela Inhub) gabapentin 100 mg capsule 100 mg PO BID PRN pain 03/29/24 04/01/24 History Processed by: Pharmacy Medications reviewed in ED?: No Medication History completed: Yes Patient Interview: Completed Secondary Source(s): Insurance records [facility] Statement: Pt interviewed by [employer]T along with [employer] insurance records. RN verified also. As the person ultimately responsible for medication therapy, providers are able to order a medication from an existing home medication list in [facility] via the "Reconcile Routine" prior to Confirmation of that medication by production support developer. Such practice is discouraged except when the physician, in their clinical judgment, deems that a medical need exists for a medication without regard to previous use.
[2024-04-01 14:02] VITALS: BP 114/69; O2SAT 94
[2024-04-01] MEDS: NICOTINE 21 MG PATCH TOP SCH (14:03)
[2024-04-01] MEDS: predniSONE 20 MG TABLET PO SCH (14:03)
[2024-04-01] MEDS ORDERED: predniSONE 20 MG TABLET PO ONE (14:29)
[2024-04-02] MEDS ORDERED: predniSONE 20 MG TABLET PO SCH (08:00)
== END 2024-04-01 14:30 | disposition home or self-care (01) ==
LOC: ED 07:51 → ICU 07:51
PROVIDERS: ADMIT Specialist; ATTEND Specialist
DX: V47.0XXA Car driver injured in collision with fixed or stationary object in nontraffic accident, initial encounter; Y92.511 Restaurant or cafe as the place of occurrence of the external cause; F17.290 Nicotine dependence, other tobacco product, uncomplicated; N39.0 Urinary tract infection, site not specified; G89.29 Other chronic pain; E87.20 Acidosis, unspecified; Z83.3 Family history of diabetes mellitus; I46.9 Cardiac arrest, cause unspecified; R41.82 Altered mental status, unspecified; J44.1 Chronic obstructive pulmonary disease with (acute) exacerbation; R73.9 Hyperglycemia, unspecified